=== PATIENT | female | born 1965 | race Caucasian/White ===

== ENCOUNTER → 2016-04-14 | Outpatient (CLI) | payer OTHER ==
[~2016-04-14] MED LIST: ALPRAZOLAM0.25 M2 PO; ANTIBIOTIC O500 U/GM TP; BACTRIM DS 8001 TA1 PO; CEPHALEXIN500 M1 PO; CITALOPRAM HYDR20 MG PO; GLYBURIDE5 MG PO; METFORMIN HCL500 MG PO; OXYCODONE HCL10 M1 PO; ROPINIROLE HY0.25 MG PO
--- NOTE | ~2016-04-14 | PR ---
[place], [place] PROGRESS NOTE NAME: PAULINE ESTRADA [facility] #: [id number] UNIT #: [id number] ROOM: DOCTOR: AUREA SilvermanLEIGH BIRTHDATE: [birth year] DOS: 04/14/2016 CHIEF COMPLAINT: Diabetic foot ulcer of the right foot and left foot. HISTORY OF PRESENT ILLNESS: The location is the metatarsal head of the right foot, first metatarsal head plantar aspect. It is a recurrent wound that she has had for several weeks now. She has been in the Wound Clinic for 3 weeks, has missed her appointment last week due to a in the family. She has uncontrolled diabetes with neuropathy and very thick callus formation. She also has a wound on the left great toe in the plantar aspect as well. She has a postop shoe that she uses for offloading at this time. We have tried to send her to [facility] for diabetic shoes in the past; however, apparently they would not order them as she continues to have recurrent open wounds at the time. So, she has no specific complaints. She does complain of a lot of drainage coming from the wounds and has been using Puracol. No fevers or chills are noted. PHYSICAL EXAMINATION: VITAL SIGNS: Her vital signs are stable. Blood pressure is 128/80, pulse is 68, respirations 18, temperature is 98.2. SKIN: The wound on the right foot is measuring 1.1 in length by 0.5 in width and 0.2 in depth. There is thick callus formation around it even with the callus. The callus has some areas of dried blood indicating a repetitive trauma to the area. The erythema that was present on the first time she came in is much improved and has essentially resolved. There is another wound on the left great toe plantar aspect that is measuring 0.5 x 0.6 x 0.2. This has a lot of callus formation as well with a lot of bleeding around it. Debridement was done today of both of these wounds. The areas were prepped with alcohol pad just the callus area was. A #15 blade was used to debride callus of both of the areas. A curette was also used for the base of the wound. There was minimal bleeding. This is a selective debridement only. The post-debridement measurements on the right foot was 1.2 x 0.6 x 0.15 in depth on the left foot. The post-debridement measurements are 0.9 x 0.6 x 0.1. There is noted also some erythema of the left foot and some mild edema, but it is not warmer or acutely tender. There is no purulence. ASSESSMENT AND PLAN: Chronic diabetic foot ulcer of the right foot. The wound does appear to be responding. I think if she had come more frequently so that the callus could be taken care of this would probably heal a lot faster. She did actually heal well last time she was here with the contact cast, which we will consider next week if the patient is agreeable. Since she does have a lot of drainage at this point, I would like to switch to Aquacel AG rather than Puracol for now. The left great toe wound has not improved a great deal yet. I think the issue is offloading. She does have some erythema and edema of the toe than I am concerned about. We did not order an x-ray of this foot, so I will go ahead and order an x-ray to see if there is any kind of bony destruction. We will also use Aquacel AG for this one as well. The patient is to follow up with us in one week. We may consider contact cast for offloading. A new postop shoe was provided for the patient for the right foot. She will need diabetic shoes, and we will further investigate trying to get these ordered for her through a different company since [facility] no longer provides this service. [place], [place] PROGRESS NOTE NAME: PAULINE ESTRADA UNIT #: [id number] ROOM: DOCTOR: LEIGH VILLAR M.D. BIRTHDATE: [birth year] Follow up in one week. LEIGH VILLAR MD CM:CAREN [id number] LEIGH VILLAR M.D. 04/15/16 0821 interface
== END | disposition home or self-care (01) ==
LOC: WOUNDCARE 00:46
DX: E11.621 Type 2 diabetes mellitus with foot ulcer (principal); L97.521 Non-pressure chronic ulcer of other part of left foot limited to breakdown of skin; L97.512 Non-pressure chronic ulcer of other part of right foot with fat layer exposed; E11.40 Type 2 diabetes mellitus with diabetic neuropathy, unspecified; L84 Corns and callosities

== ENCOUNTER → 2016-04-21 | Outpatient (CLI) | payer OTHER ==
--- NOTE | ~2016-04-21 | PR ---
[place], [place] PROGRESS NOTE NAME: PAULINE ESTRADA [facility] #: [id number] UNIT #: [id number] ROOM: DOCTOR: AUREA SilvermanLEIGH BIRTHDATE: [birth year] DOS: 04/21/2016 Wound Care Followup Note CHIEF COMPLAINT: Follow up of diabetic foot ulcers, bilateral feet. HISTORY OF PRESENT ILLNESS: Elements: The location is a right plantar aspect of the first metatarsal head. It is a recurrent wound that she has had for several weeks now. She has been in the Wound Clinic for 4 weeks now. The wound does continue slowly to get smaller; however, she does continue to come back with a large amount of very thick callus formation despite offloading with a postop shoe. Her left great toe has a wound as well on the plantar aspect that is getting slightly smaller. This continues to have very large amounts of callus as well. She has no specific complaints today. PHYSICAL EXAMINATION: VITAL SIGNS: Stable. Temperature is 97.5, pulse of 80, respirations 18, blood pressure is 122/74. The wound on the right foot is measuring 1 x 0.3 x 0.2. There is a large amount of thick callus present. This area was debrided; this is a selective debridement. The tissue removed was hyperkeratotic, nonviable callus only as well as some fibrin slough. Post-debridement measurements are as follows 1.1 x 0.5 x 0.2. There is a moderate amount of bleeding that was controlled with pressure. Instrument used was a #15 blade and a curette. The left toe wound is measuring 0.4 x 0.3 x 0.2. There is a thick amount of callus present as before with lots of dry skin around the medial aspect of the toe. This area was debrided. The tissue removed was nonviable hyperkeratotic callus only. There was a moderate amount of bleeding that was controlled with pressure. Post-debridement measurements are as follows: 0.6 x 0.5 x 0.2. The instrument utilized was a #15 blade. X-ray was done on her left great toe, which was normal last week. ASSESSMENT AND PLAN: Chronic diabetic foot ulcers. There is definitely a large amount of progress with the right foot. At this time, since it continues to improve, I will hold off on the contact cast for now and have her continue to use her postop shoe. Hopefully, we will get diabetic shoes ordered for her in the near future. The left great toe wound is stable, it is getting smaller little by little. We will continue with the current dressing and have her follow up in one week. [place], [place] PROGRESS NOTE NAME: PAULINE ESTRADA UNIT #: [id number] ROOM: DOCTOR: LEIGH VILLAR M.D. BIRTHDATE: [birth year] LEIGH VILLAR MD CM:CAREN [phone] [id number] LEIGH VILLAR M.D. 04/21/16 2158 interface
== END ==
LOC: WOUNDCARE 03:50
DX: E11.621 Type 2 diabetes mellitus with foot ulcer (principal); L97.521 Non-pressure chronic ulcer of other part of left foot limited to breakdown of skin; L97.511 Non-pressure chronic ulcer of other part of right foot limited to breakdown of skin; L84 Corns and callosities

== ENCOUNTER → 2016-06-10 | Outpatient (CLI) | payer OTHER ==
--- NOTE | ~2016-06-10 | PR ---
[place], [place] PROGRESS NOTE NAME: PAULINE ESTRADA [facility] #: [id number] UNIT #: [id number] ROOM: DOCTOR: AUREA SilvermanLEIGH BIRTHDATE: [birth year] DOS: 06/10/2016 SUBJECTIVE: The patient comes in accompanied by her . CHIEF COMPLAINT: Followup of diabetic foot ulcers. She has a foot ulcer of her right plantar foot metatarsal head as well as one on the left great toe. She has had it present for 3 months at least. She has been coming to the wound clinic; however, it had been present prior to that too as well before she came present for approximately 2 months before she came. Initially, the wound did respond fairly well in the past to contact cast; however, she had some issues with the cast rubbing on her left foot. She tends to forget that she has a cast on in place and tends to automatically rub her left foot with the cast so due to this fact the cast was discontinued and immediately the ulcer continued to deteriorate after that. She has had also problem with the ulcer of the left foot of the first great toe plantar aspect as well associated with very severe thick callus formation and some chronic erythema associated with this left toe. She was seen approximately in the clinic 10 days ago at which time it looked like there was worsening of both of her wounds. The right foot wound appeared much more ulcerated and inflamed as well as very friable and the left great toe appeared to be more discolored. She does have some chronic erythema, but the erythema seems to be much more pronounced. She was placed empirically on a quinolone. X-rays were ordered and those were negative. She had a normal CBC, normal Chem-7 and C-reactive protein was normal. However, her hemoglobin A1c was elevated at 9.8. She has had severely uncontrolled diabetes. At one point, her hemoglobin A1c was 14, so this for her is an improvement. She has been scheduled for an MRI, which is going to be done today, this afternoon, so we do not have the result. In any case, she comes in for a followup appointment I also did recommend for her to be seen and to try and get fitted for orthotic type offloading shoes at a local podiatry office, Dr. Carroll's office. She still has not gotten a chance to go there yet, so that has not been done as of yet. She comes in today saying her sugar was 300. She did reports eating a milkshake yesterday. She also has some reported intermittent cramps of the right leg, which she said is not unusual for her and she has had this before. PHYSICAL EXAMINATION: Otherwise is normal. VITAL SIGNS: Blood pressure is 140/80, pulse of 80, respirations 18, temperature is 98.4. SKIN: The wound on the right lower extremity at the distal end is measuring 2.6 x 0.2 x 0.1. This, however, is definitely all callus it is very friable and bloody with a lot of thick dried callus notable it is very friable. There is some minimal erythema. It is not acutely tender or acutely warm. The callus is measuring 0.4 x 0.3 x 0.1 and there is still fairly thick amount of callus, actual discoloration appears improved from last week. It is definitely not as erythematous as it had been. A selective debridement was done of both of these wounds. The tissue removed was nonviable hyperkeratotic callus only. The post-debridement measurements of the right plantar wound is 2.5 x 3 x 0.1. The post-debridement measurements of the left plantar great toe is 0.6 x 0.5 x 0.1. The tissue removed was just nonviable hyperkeratotic callus only. There was [place], [place] PROGRESS NOTE NAME: PAULINE ESTRADA UNIT #: [id number] ROOM: DOCTOR: AUREA SilvermanUPHAM BIRTHDATE: [birth year] minimal bleeding that was controlled with pressure. The patient tolerated the debridement well and then #15 blade was utilized. ASSESSMENT AND PLAN: Chronic diabetic foot ulcers, which are not improving, most likely secondary to not being offloaded properly. She is going to get an MRI today. If the MRI is negative, we will go ahead and place the contact cast on the right leg. However, we will wait until the MRI is read hopefully it will be negative. I would like to initially place the cast on the right leg if possible; we may have to do one on the left leg as well in the near future, but not at the same time obviously. In the meantime, she should also consider going to the local podiatry office for orthotic offloading shoe devices or she can go to [facility] as well for that, although it may take more time to get the devices and I think this sooner should get something more definitive would be better. She does have some cramping of her right calf, which is not unusual for her. I did explain that if it does not improve that she should get this evaluated. The patient will come back next week. LEIGH VILLAR MD CM:CAREN [phone] LEIGH VILLAR M.D. 06/11/16 1044 interface
== END | disposition home or self-care (01) ==
LOC: MRI 02:13
DX: E11.621 Type 2 diabetes mellitus with foot ulcer (principal); B96.89 Other specified bacterial agents as the cause of diseases classified elsewhere; L97.521 Non-pressure chronic ulcer of other part of left foot limited to breakdown of skin

== ENCOUNTER → 2016-08-05 | Outpatient (CLI) | payer OTHER | END | disposition home or self-care (01) | LOC: US 18:47 | DX: M79.89 Other specified soft tissue disorders (principal) ==

== ENCOUNTER → 2017-05-23 | Outpatient (CLI) | payer OTHER | END | disposition home or self-care (01) | LOC: MRI 05-19 11:29 | DX: M48.061 Spinal stenosis, lumbar region without neurogenic claudication (principal); M12.88 Other specific arthropathies, not elsewhere classified, other specified site; M51.26 Other intervertebral disc displacement, lumbar region; M54.16 Radiculopathy, lumbar region ==

== ENCOUNTER → 2017-06-21 | Outpatient (CLI) | payer OTHER | END | disposition home or self-care (01) | LOC: US 14:05 | DX: R10.31 Right lower quadrant pain (principal); R60.9 Edema, unspecified ==

== ENCOUNTER 2017-06-26 11:26 | Emergency (ER) | payer OTHER ==
[~2017-06-26] VITALS: Ht 165.1 cm; Wt 81.6 kg
== END 2017-06-26 13:57 | disposition home or self-care (01) ==
LOC: ED 11:26
DX: S82.891A Other fracture of right lower leg, initial encounter for closed fracture (principal); M54.5 Low back pain; E11.621 Type 2 diabetes mellitus with foot ulcer; W19.XXXA Unspecified fall, initial encounter; Y93.89 Activity, other specified; Y92.89 Other specified places as the place of occurrence of the external cause; Y99.8 Other external cause status

== ENCOUNTER → 2017-07-28 | Outpatient (CLI) | payer OTHER | END | disposition home or self-care (01) | LOC: CT 13:34 | DX: S92.141A Displaced dome fracture of right talus, initial encounter for closed fracture (principal); X58.XXXA Exposure to other specified factors, initial encounter; Y93.89 Activity, other specified; Y92.89 Other specified places as the place of occurrence of the external cause; Y99.8 Other external cause status ==

== ENCOUNTER → 2017-12-14 | Outpatient (CLI) | payer OTHER ==
[~2017-12-14] MED LIST changes: +ACIDOPHILUS PR0.5 MG PO; +ASPIRIN CHEWABL81 MG PO; +ASPIRIN EC650 MG PO; +B COMPLEX1 EACH PO; +BIOFREEZE118 ML T; +COLACE100 MG PO; +CYCLOBENZAPRINE10 MG PO; +CYMBALTA60 MG PO; +DOXEPIN HCL100 MG PO; +DULCOLAX10 M1 R; +IBU800 M1 PO; +KLONOPIN1 M1 PO; +LANTUS SOL100 UNIT/1 SQ; +LEVOTHYROXINE100 MC1 PO; +MIRTAZAPINE45 MG PO; +MOM30 M1 PO; +NEURONTIN600 MG PO; +PERCOCET 7.5-31 EACH PO; +PREDNISONE10 MG PO; +PROTONIX40 MG PO; +REQUIP2 MG PO; +VALIUM10 MG PO; +VANCOMYCIN1.5 GM/500 IV; +VISTARIL50 MG PO; +VITAMIN D-32000 UNIT PO; +VITAMIN D5000 UNIT PO; +ZOSYN 3.373.375 GM/5 IV
== END | disposition home or self-care (01) ==
LOC: US 14:22
DX: M79.604 Pain in right leg (principal); R60.0 Localized edema

== ENCOUNTER 2017-12-28 02:14 | Inpatient (IN) | payer OTHER ==
[2017-12-28] VITALS (9 sets, daily range): BP systolic 118–154; BP diastolic 58–98
[~2017-12-28] VITALS: Ht 162.5 cm; Wt 99.8 kg
--- NOTE | ~2017-12-28 | EKG ---
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
--- NOTE | ~2017-12-28 | PR ---
[place], [place] PROGRESS NOTE NAME: PAULINE ESTRADA [facility] #: [id number] UNIT #: [id number] ROOM: 403 DOCTOR: KITA GONZALEZ MD,EAMON BIRTHDATE: [birth year] DOS: 12/31/2017 SUBJECTIVE: The patient has been noted quite comfortable at this time without any symptoms of acute shortness of breath, coughing, sputum expectoration or any chest pain. The patient's oxygenation has been gradually improved. Denies symptoms of fever or chills at this time as well. Planned for possible home discharge today. OBJECTIVE: VITAL SIGNS: For the patient which has been recorded showed normal temperature, respiratory rate 18, heart rate 99, blood pressure 138/72. Pulse oxygen saturation of the patient at rest on room air was noted at 95%. HEENT: Chronic obesity. NECK: Supple. CARDIOVASCULAR: S1, S2 audible. LUNGS: Noted with free of any wheezing. No crackles at the present time. ABDOMEN: Soft, obese, nontender, bowel sounds present. EXTREMITIES: Without any acute edema. IMPRESSION: 1. Acute respiratory failure. That has been improved with exacerbation of chronic obstructive pulmonary disease, very likelihood at this time. 2. The patient with hyperglycemia due to corticosteroid and diabetes mellitus. PLAN OF TREATMENT: The patient could be discharged to the nursing facility and should be assessed for need of home oxygen supplementation if the hypoxia occurred with ambulation. Otherwise, the patient with tapering prednisone. Other medical management, plan of care. Usual treatment, other therapies. EAMON EAST MD CM:PNTRANS [id number] EAMON GONZALEZ MD 01/09/18 1006 interface
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
[~2017-12-28 02:14] MED LIST changes: -ACIDOPHILUS PR0.5 MG PO; -ASPIRIN CHEWABL81 MG PO; -ASPIRIN EC650 MG PO; -B COMPLEX1 EACH PO; -BIOFREEZE118 ML T; -COLACE100 MG PO; -CYCLOBENZAPRINE10 MG PO; -CYMBALTA60 MG PO; -DOXEPIN HCL100 MG PO; -DULCOLAX10 M1 R; -IBU800 M1 PO; -KLONOPIN1 M1 PO; -LANTUS SOL100 UNIT/1 SQ; -LEVOTHYROXINE100 MC1 PO; -MIRTAZAPINE45 MG PO; -MOM30 M1 PO; -NEURONTIN600 MG PO; -PERCOCET 7.5-31 EACH PO; -PREDNISONE10 MG PO; -PROTONIX40 MG PO; -REQUIP2 MG PO; -VALIUM10 MG PO; -VANCOMYCIN1.5 GM/500 IV; -VISTARIL50 MG PO; -VITAMIN D-32000 UNIT PO; -VITAMIN D5000 UNIT PO; -ZOSYN 3.373.375 GM/5 IV
[2017-12-28 02:35] LABS: BASO # 0.1 10*3/uL (0.0-0.1); BASO % 0.8 % (0.0-1.0); EOS # 0.2 10*3/uL (0.0-0.4); EOS % 1.5 % (1.0-4.0); HEMATOCRIT 36.5 % (37.0-47.0); HEMOGLOBIN 10.8 g/dl (12.0-16.0); LYMPH # 2.8 10*3/uL (1.3-4.4); LYMPH % 26.3 % (27.0-41.0); MEAN CELL VOLUME 77.8 fl (81.0-99.0); MEAN CORPUSCULAR HGB CONC 29.6 g/dl (33.0-37.0); MEAN PLATELET VOLUME 9.7 fl (9.6-12.3); MONO # 0.6 10*3/uL (0.1-1.0); MONO % 6.1 % (3.0-9.0); NEUT # 6.8 10*3/uL (2.3-7.9); NEUT % 64.8 % (47.0-73.0); PLATELET COUNT AUTOMATED 345 10*3/uL (130-400); RED BLOOD COUNT 4.69 10*6/uL (4.10-5.10); RED CELL DISTRI WIDTH 15.4 % (0-14.5); WHITE BLOOD COUNT 10.5 10*3/uL (4.8-10.8)
[2017-12-28 02:44] LABS: INTERNATIONAL NORM RATIO 0.9 (2.0-3.5)
[2017-12-28 02:54] LABS: ALBUMIN 3.2 gm/dl (3.1-4.5); ALKALINE PHOSPHATASE 167 U/L (45-117); BUN 12 mg/dl (7-24); CHLORIDE 95 mmol/L (98-107); CREATININE 0.84 mg/dL (0.55-1.02); LIPASE 102 U/L (73-393); POTASSIUM 4.3 mmol/L (3.5-5.1); SGOT/AST 23 IU/L (3-35); SGPT/ALT 22 U/L (12-78); SODIUM 135 mmol/L (136-145)
[2017-12-28 02:55] LABS: TROPONIN I < 0.015 ng/ml (<0.045)
[2017-12-28 05:17] LABS: CHOLESTEROL 260 mg/dL (<200); HDL CHOLESTEROL 33 mg/dl (40-60)
[2017-12-28 05:21] LABS: TRIGLYCERIDES 1135 mg/dl (<150)
[2017-12-28] MEDS ORDERED: BIOFREEZE118 ML T (05:22)
[2017-12-28] MEDS ORDERED: ASPIRIN CHEWABL81 MG PO (05:22)
[2017-12-28] MEDS ORDERED: COLACE100 MG PO (05:22)
[2017-12-28] MEDS ORDERED: VALIUM10 MG PO (05:23)
[2017-12-28] MEDS ORDERED: CYMBALTA60 MG PO (05:23)
[2017-12-28] MEDS ORDERED: CYCLOBENZAPRINE10 MG PO (05:23)
[2017-12-28] MEDS ORDERED: DOXEPIN HCL100 MG PO (05:23)
[2017-12-28] MEDS ORDERED: NEURONTIN600 MG PO (05:24)
[2017-12-28] MEDS ORDERED: ACIDOPHILUS PR0.5 MG PO (05:25)
[2017-12-28] MEDS ORDERED: LEVOTHYROXINE100 MC1 PO (05:25)
[2017-12-28] MEDS ORDERED: PROTONIX40 MG PO (05:30)
[2017-12-28] MEDS ORDERED: PERCOCET 7.5-31 EACH PO ×2 (05:30)
[2017-12-28] MEDS ORDERED: B COMPLEX1 EACH PO (05:31)
[2017-12-28] MEDS ORDERED: REQUIP2 MG PO (05:31)
[2017-12-28] MEDS ORDERED: VISTARIL50 MG PO (05:31)
[2017-12-28] MEDS ORDERED: VITAMIN D-32000 UNIT PO (05:32)
[2017-12-28 09:25] LABS: VITAMIN D, 25-HYDROXY 14.5 ng/mL (30-100)
[2017-12-28 09:26] LABS: FERRITIN 20.4 ng/mL (10.0-291.0)
[2017-12-28 09:35] LABS: BASO # 0.1 10*3/uL (0.0-0.1); BASO % 0.4 % (0.0-1.0); EOS % 0.1 % (1.0-4.0); HEMATOCRIT 33.6 % (37.0-47.0); LYMPH # 2.1 10*3/uL (1.3-4.4); LYMPH % 11.1 % (27.0-41.0); MEAN CELL VOLUME 77.8 fl (81.0-99.0); MEAN CORPUSCULAR HGB 23.1 pg (27.0-31.0); MEAN CORPUSCULAR HGB CONC 29.8 g/dl (33.0-37.0); MEAN PLATELET VOLUME 9.5 fl (9.6-12.3); MONO # 1.1 10*3/uL (0.1-1.0); MONO % 5.6 % (3.0-9.0); NEUT # 15.7 10*3/uL (2.3-7.9); NEUT % 82.5 % (47.0-73.0); PLATELET COUNT AUTOMATED 310 10*3/uL (130-400); RED BLOOD COUNT 4.32 10*6/uL (4.10-5.10); RED CELL DISTRI WIDTH 15.3 % (0-14.5); RETICULOCYTE % 2.16 % (0.50-2.50)
[2017-12-28 09:49] LABS: ALBUMIN 3.3 gm/dl (3.1-4.5); ALKALINE PHOSPHATASE 158 U/L (45-117); BUN 10 mg/dl (7-24); CREATININE 0.95 mg/dL (0.55-1.02); IRON 18 ug/dL (50-170); PHOSPHOROUS 3.4 mg/dL (2.5-4.9); SGOT/AST 8 IU/L (3-35); SGPT/ALT 19 U/L (12-78); TOTAL IRON BINDING CAPACITY 474 ug/dl (250-450); TOTAL PROTEIN 7.9 gm/dL (6.4-8.2)
[2017-12-28 10:24] LABS: CHLORIDE 96 mmol/L (98-107); POTASSIUM 4.5 mmol/L (3.5-5.1); SODIUM 134 mmol/L (136-145)
[2017-12-28 15:55] LABS: BILIRUBIN NEGATIVE (NEGATIVE); BLOOD NEGATIVE (NEGATIVE); CLARITY CLEAR (CLEAR); COLOR YELLOW (YELLOW); GLUCOSE 3+ (NEGATIVE); KETONE NEGATIVE (NEGATIVE); LEUKO ESTERASE NEGATIVE (NEGATIVE); NITRITE NEGATIVE (NEGATIVE); RBC 0-2 rbc/hpf (0-2); UROBILINOGEN 0.2 E.U./dl (0.2-1.0)
[2017-12-29] VITALS: BP 124/60
[2017-12-29 06:52] LABS: HEMATOCRIT 29.5 % (37.0-47.0); HEMOGLOBIN 8.7 g/dl (12.0-16.0); MEAN CELL VOLUME 76.4 fl (81.0-99.0); MEAN CORPUSCULAR HGB 22.5 pg (27.0-31.0); MEAN CORPUSCULAR HGB CONC 29.5 g/dl (33.0-37.0); MEAN PLATELET VOLUME 10.1 fl (9.6-12.3); PLATELET COUNT AUTOMATED 306 10*3/uL (130-400); RED BLOOD COUNT 3.86 10*6/uL (4.10-5.10); RED CELL DISTRI WIDTH 15.2 % (0-14.5)
[2017-12-29 06:56] LABS: ALBUMIN 2.8 gm/dl (3.1-4.5); ALKALINE PHOSPHATASE 142 U/L (45-117); BUN 14 mg/dl (7-24); CHLORIDE 103 mmol/L (98-107); POTASSIUM 4.1 mmol/L (3.5-5.1); SGOT/AST 7 IU/L (3-35); SGPT/ALT 14 U/L (12-78); SODIUM 141 mmol/L (136-145); TOTAL PROTEIN 7.3 gm/dL (6.4-8.2)
[2017-12-29 07:40] LABS: MICROCYTOSIS SLIGHT; PLATELET SUFFICIENCY NORMAL (NORMAL); POLYCHROMASIA SLIGHT; TOTAL CELLS COUNTED 100 #CELLS
[2017-12-29 08:00] VITALS: BP 121/71
[2017-12-29 12:00] VITALS: BP 133/67
[2017-12-29 16:00] VITALS: BP 122/63
[2017-12-29 20:00] VITALS: BP 124/67
[2017-12-30] VITALS: BP 123/66
[2017-12-30 07:15] LABS: BASO % 0.2 % (0.0-1.0); EOS % 0.1 % (1.0-4.0); HEMATOCRIT 29.8 % (37.0-47.0); HEMOGLOBIN 8.8 g/dl (12.0-16.0); LYMPH # 1.2 10*3/uL (1.3-4.4); LYMPH % 8.8 % (27.0-41.0); MEAN CELL VOLUME 76.8 fl (81.0-99.0); MEAN CORPUSCULAR HGB 22.7 pg (27.0-31.0); MEAN CORPUSCULAR HGB CONC 29.5 g/dl (33.0-37.0); MEAN PLATELET VOLUME 10.1 fl (9.6-12.3); MONO # 0.4 10*3/uL (0.1-1.0); MONO % 2.5 % (3.0-9.0); NEUT # 12.1 10*3/uL (2.3-7.9); NEUT % 87.2 % (47.0-73.0); PLATELET COUNT AUTOMATED 332 10*3/uL (130-400); RED BLOOD COUNT 3.88 10*6/uL (4.10-5.10); RED CELL DISTRI WIDTH 15.4 % (0-14.5); WHITE BLOOD COUNT 13.9 10*3/uL (4.8-10.8)
[2017-12-30 07:34] LABS: BUN 21 mg/dl (7-24); CHLORIDE 101 mmol/L (98-107); POTASSIUM 4.1 mmol/L (3.5-5.1); SODIUM 139 mmol/L (136-145)
[2017-12-30 07:59] LABS: ALKALINE PHOSPHATASE 135 U/L (45-117); SGOT/AST 7 IU/L (3-35); TOTAL PROTEIN 6.9 gm/dL (6.4-8.2)
[2017-12-30 08:00] VITALS: BP 118/60
[2017-12-30 08:20] LABS: CREATININE 0.77 mg/dL (0.55-1.02); PHOSPHOROUS 4.7 mg/dL (2.5-4.9); SGPT/ALT 15 U/L (12-78)
[2017-12-30 12:00] VITALS: BP 125/50
[2017-12-30 16:00] VITALS: BP 139/72
[2017-12-30 20:00] VITALS: BP 108/61
[2017-12-31] VITALS: BP 143/61
[2017-12-31 00:28] VITALS: BP 117/58
[2017-12-31 07:15] LABS: BASO # 0.1 10*3/uL (0.0-0.1); BASO % 0.7 % (0.0-1.0); EOS # 0.1 10*3/uL (0.0-0.4); EOS % 0.8 % (1.0-4.0); HEMATOCRIT 32.5 % (37.0-47.0); HEMOGLOBIN 9.6 g/dl (12.0-16.0); LYMPH # 2.9 10*3/uL (1.3-4.4); LYMPH % 27.3 % (27.0-41.0); MEAN CELL VOLUME 77.2 fl (81.0-99.0); MEAN CORPUSCULAR HGB 22.8 pg (27.0-31.0); MEAN CORPUSCULAR HGB CONC 29.5 g/dl (33.0-37.0); MEAN PLATELET VOLUME 9.7 fl (9.6-12.3); MONO # 0.6 10*3/uL (0.1-1.0); MONO % 5.8 % (3.0-9.0); NEUT # 6.8 10*3/uL (2.3-7.9); NEUT % 63.5 % (47.0-73.0); PLATELET COUNT AUTOMATED 332 10*3/uL (130-400); RED BLOOD COUNT 4.21 10*6/uL (4.10-5.10); RED CELL DISTRI WIDTH 15.7 % (0-14.5); WHITE BLOOD COUNT 10.8 10*3/uL (4.8-10.8)
[2017-12-31 07:35] LABS: BUN 20 mg/dl (7-24); CHLORIDE 101 mmol/L (98-107); POTASSIUM 3.4 mmol/L (3.5-5.1); SODIUM 140 mmol/L (136-145)
[2017-12-31 08:00] VITALS: BP 122/70; BP 138/72
[2017-12-31] MEDS ORDERED: PREDNISONE10 MG PO (11:44)
[2018-02-08] MEDS ORDERED: ASPIRIN EC650 MG PO (23:56)
[2018-02-08] MEDS ORDERED: LANTUS SOL100 UNIT/1 SQ (23:59)
[2018-02-09] MEDS ORDERED: KLONOPIN1 M1 PO
[2018-02-09] MEDS ORDERED: IBU800 M1 PO (21:03)
[2018-02-09] MEDS ORDERED: MOM30 M1 PO (21:04)
[2018-02-09] MEDS ORDERED: DULCOLAX10 M1 R (21:05)
[2018-02-09] MEDS ORDERED: MIRTAZAPINE45 MG PO (21:06)
[2018-02-09] MEDS ORDERED: B COMPLEX1 EACH PO (21:07)
[2018-02-09] MEDS ORDERED: VITAMIN D5000 UNIT PO (21:08)
[2018-02-14] MEDS ORDERED: PERCOCET 7.5-31 EACH PO ×3 (14:05→14:11)
[2018-02-14] MEDS ORDERED: KLONOPIN1 M1 PO (14:05)
[2018-02-14] MEDS ORDERED: VANCOMYCIN1.5 GM/500 IV ×2 (14:16→15:47)
[2018-02-14] MEDS ORDERED: ZOSYN 3.373.375 GM/5 IV ×2 (14:17→15:47)
== END 2017-12-31 12:45 | disposition other institution (70) | DRG 189 ==
LOC: ED 02:14 → EDHOLD 03:50 → 4E 03:50
PROVIDERS: Emergency Medicine; Family Medicine; Internal Medicine
DX: J96.01 Acute respiratory failure with hypoxia (principal); J45.901 Unspecified asthma with (acute) exacerbation; E44.0 Moderate protein-calorie malnutrition; F33.9 Major depressive disorder, recurrent, unspecified; E87.1 Hypo-osmolality and hyponatremia; J44.1 Chronic obstructive pulmonary disease with (acute) exacerbation; F41.1 Generalized anxiety disorder; E11.65 Type 2 diabetes mellitus with hyperglycemia; R00.0 Tachycardia, unspecified; D50.9 Iron deficiency anemia, unspecified; T38.0X5A Adverse effect of glucocorticoids and synthetic analogues, initial encounter; F43.10 Post-traumatic stress disorder, unspecified; E66.01 Morbid (severe) obesity due to excess calories; G25.81 Restless legs syndrome; E78.5 Hyperlipidemia, unspecified; M54.30 Sciatica, unspecified side; E11.42 Type 2 diabetes mellitus with diabetic polyneuropathy; E87.8 Other disorders of electrolyte and fluid balance, not elsewhere classified; R74.8 Abnormal levels of other serum enzymes; E03.9 Hypothyroidism, unspecified; K21.9 Gastro-esophageal reflux disease without esophagitis; E55.9 Vitamin D deficiency, unspecified; Z98.891 History of uterine scar from previous surgery; Z98.51 Tubal ligation status; Z87.81 Personal history of (healed) traumatic fracture; Z83.3 Family history of diabetes mellitus; Z79.82 Long term (current) use of aspirin; Z79.899 Other long term (current) drug therapy; Z87.891 Personal history of nicotine dependence; Z79.84 Long term (current) use of oral hypoglycemic drugs; Y92.89 Other specified places as the place of occurrence of the external cause; Z68.35 Body mass index [BMI] 35.0-35.9, adult

== ENCOUNTER → 2018-01-18 | Outpatient (CLI) | payer OTHER ==
[~2018-01-18] MED LIST changes: +ACIDOPHILUS PR0.5 MG PO; +ASPIRIN CHEWABL81 MG PO; +ASPIRIN EC650 MG PO; +B COMPLEX1 EACH PO; +BIOFREEZE118 ML T; +COLACE100 MG PO; +CYCLOBENZAPRINE10 MG PO; +CYMBALTA60 MG PO; +DOXEPIN HCL100 MG PO; +DULCOLAX10 M1 R; +IBU800 M1 PO; +KLONOPIN1 M1 PO; +LANTUS SOL100 UNIT/1 SQ; +LEVOTHYROXINE100 MC1 PO; +MIRTAZAPINE45 MG PO; +MOM30 M1 PO; +NEURONTIN600 MG PO; +PERCOCET 7.5-31 EACH PO; +PREDNISONE10 MG PO; +PROTONIX40 MG PO; +REQUIP2 MG PO; +VALIUM10 MG PO; +VANCOMYCIN1.5 GM/500 IV; +VISTARIL50 MG PO; +VITAMIN D-32000 UNIT PO; +VITAMIN D5000 UNIT PO; +ZOSYN 3.373.375 GM/5 IV
== END | disposition home or self-care (01) ==
LOC: US 16:30
DX: M79.604 Pain in right leg (principal); R60.0 Localized edema

== ENCOUNTER 2018-05-06 13:48 | Emergency (ER) | payer OTHER ==
[~2018-05-06] VITALS: Ht 170.1 cm; Wt 74.8 kg
[~2018-05-06 13:48] MED LIST changes: +Synthroid,Lev150 MCG PO
[2018-05-06 14:20] LABS: BASO # 0.1 10*3/uL (0.0-0.1); BASO % 1.1 % (0.0-1.0); EOS # 0.4 10*3/uL (0.0-0.4); EOS % 4.6 % (1.0-4.0); HEMATOCRIT 40.3 % (37.0-47.0); LYMPH # 1.7 10*3/uL (1.3-4.4); LYMPH % 19.9 % (27.0-41.0); MEAN CELL VOLUME 85.6 fl (81.0-99.0); MEAN CORPUSCULAR HGB 27.6 pg (27.0-31.0); MEAN CORPUSCULAR HGB CONC 32.3 g/dl (33.0-37.0); MEAN PLATELET VOLUME 8.9 fl (9.6-12.3); MONO # 0.7 10*3/uL (0.1-1.0); MONO % 8.5 % (3.0-9.0); NEUT # 5.5 10*3/uL (2.3-7.9); NEUT % 65.3 % (47.0-73.0); PLATELET COUNT AUTOMATED 402 10*3/uL (130-400); RED BLOOD COUNT 4.71 10*6/uL (4.10-5.10); RED CELL DISTRI WIDTH 13.4 % (0-14.5); WHITE BLOOD COUNT 8.4 10*3/uL (4.8-10.8)
[2018-05-06 14:35] LABS: ACT PARTIAL THROMBO TIME 21.9 SECONDS (20.8-31.5); INTERNATIONAL NORM RATIO 0.9 (2.0-3.5)
[2018-05-06 14:39] LABS: ALBUMIN 3.2 gm/dl (3.1-4.5); ALKALINE PHOSPHATASE 138 U/L (45-117); BUN 16 mg/dl (7-24); CHLORIDE 99 mmol/L (98-107); CREATININE 0.93 mg/dL (0.55-1.02); POTASSIUM 4.4 mmol/L (3.5-5.1); SGOT/AST 24 IU/L (3-35); SGPT/ALT 27 U/L (12-78); SODIUM 137 mmol/L (136-145); TOTAL PROTEIN 7.8 gm/dL (6.4-8.2)
[2018-05-26] MEDS ORDERED: CIPRO500 MG PO (10:46)
[2018-05-26] MEDS ORDERED: VALIUM10 MG PO (10:55)
[2018-05-26] MEDS ORDERED: SIMVASTATIN20 MG PO (10:56)
[2018-05-26] MEDS ORDERED: NOVOLOG FL100 UNIT/1 SQ (10:58)
[2018-07-10] MEDS ORDERED: APAP325 MG PO (16:04)
[2018-07-10] MEDS ORDERED: CLONIDINE HCL0.1 MG PO (16:06)
[2018-07-10] MEDS ORDERED: LOSARTAN POTASS25 M1 PO (16:10)
[2018-07-10] MEDS ORDERED: NOVOLOG FL100 UNIT/2 SC (16:14)
[2018-07-10] MEDS ORDERED: REQUIP2 MG PO (16:16)
[2018-07-10] MEDS ORDERED: ZOCOR40 MG PO (16:17)
[2018-07-10] MEDS ORDERED: VISTARIL50 MG PO (16:19)
[2018-07-15] MEDS ORDERED: PERCOCET 7.5 MG-325 PO (13:21)
[2018-07-15] MEDS ORDERED: XARELTO10 MG PO (13:21)
[2018-07-15] MEDS ORDERED: PERCOCET 7.5-31 EACH PO (13:23)
[2018-07-28] MEDS ORDERED: KEFLEX500 M1 PO (03:27)
[2018-10-04] MEDS ORDERED: DOXYCYCLINE100 M3 PO (12:10)
[2018-10-04] MEDS ORDERED: XARELTO10 MG PO (12:10)
[2018-10-04] MEDS ORDERED: TRAMADOL HCL50 MG PO (12:11)
== END 2018-05-06 15:57 ==
LOC: ED 13:48
PROVIDERS: Emergency Medicine
DX: L08.9 Local infection of the skin and subcutaneous tissue, unspecified (principal); E11.40 Type 2 diabetes mellitus with diabetic neuropathy, unspecified; Z79.899 Other long term (current) drug therapy; Z79.2 Long term (current) use of antibiotics; Z79.4 Long term (current) use of insulin; Z79.82 Long term (current) use of aspirin

== ENCOUNTER 2018-07-29 03:23 | Emergency (ER) | payer OTHER ==
[~2018-07-29] VITALS: Ht 167.6 cm; Wt 95.3 kg
[~2018-07-29 03:23] MED LIST changes: +APAP325 MG PO; +CIPRO500 MG PO; +CLONIDINE HCL0.1 MG PO; +KEFLEX500 M1 PO; +LOSARTAN POTASS25 M1 PO; +NOVOLOG FL100 UNIT/1 SQ; +NOVOLOG FL100 UNIT/2 SC; +PERCOCET 7.5 MG-325 PO; +SIMVASTATIN20 MG PO; +XARELTO10 MG PO; +ZOCOR40 MG PO
[2018-07-29] MEDS ORDERED: NOVOLOG10 ML SQ (03:29)
[2018-07-29] MEDS ORDERED: PERCOCET 7.5-31 EACH PO ×2 (03:30)
[2018-07-29] MEDS ORDERED: KENALOG 0.1%80 GM T (04:07)
[2018-10-04] MEDS ORDERED: DOXYCYCLINE100 M3 PO (12:10)
[2018-10-04] MEDS ORDERED: XARELTO10 MG PO (12:10)
[2018-10-04] MEDS ORDERED: TRAMADOL HCL50 MG PO (12:11)
== END 2018-07-29 04:17 | disposition home or self-care (01) ==
LOC: ED 03:23
DX: S00.86XA Insect bite (nonvenomous) of other part of head, initial encounter (principal); S50.862A Insect bite (nonvenomous) of left forearm, initial encounter; S50.861A Insect bite (nonvenomous) of right forearm, initial encounter; J45.909 Unspecified asthma, uncomplicated; K21.9 Gastro-esophageal reflux disease without esophagitis; E03.9 Hypothyroidism, unspecified; E66.01 Morbid (severe) obesity due to excess calories; E11.40 Type 2 diabetes mellitus with diabetic neuropathy, unspecified; M86.8X7 Other osteomyelitis, ankle and foot; I50.9 Heart failure, unspecified; Z79.899 Other long term (current) drug therapy; Z79.4 Long term (current) use of insulin; Z79.82 Long term (current) use of aspirin; W57.XXXA Bitten or stung by nonvenomous insect and other nonvenomous arthropods, initial encounter; Y93.89 Activity, other specified; Y92.128 Other place in nursing home as the place of occurrence of the external cause; Y99.8 Other external cause status

== ENCOUNTER → 2018-10-04 | Day surgery (SDC) | payer OTHER ==
[2018-09-29 14:23] VITALS: BP 145/82
[2018-09-29 15:22] LABS: BASO # 0.1 10*3/uL (0.0-0.1); BASO % 0.8 % (0.0-1.0); EOS # 0.3 10*3/uL (0.0-0.4); EOS % 2.9 % (1.0-4.0); HEMATOCRIT 41.9 % (37.0-47.0); HEMOGLOBIN 12.4 g/dl (12.0-16.0); LYMPH # 3.6 10*3/uL (1.3-4.4); LYMPH % 38.1 % (27.0-41.0); MEAN CELL VOLUME 83.1 fl (81.0-99.0); MEAN CORPUSCULAR HGB 24.6 pg (27.0-31.0); MEAN CORPUSCULAR HGB CONC 29.6 g/dl (33.0-37.0); MONO # 0.9 10*3/uL (0.1-1.0); MONO % 9.1 % (3.0-9.0); NEUT # 4.6 10*3/uL (2.3-7.9); NEUT % 48.8 % (47.0-73.0); PLATELET COUNT AUTOMATED 322 10*3/uL (130-400); RED BLOOD COUNT 5.04 10*6/uL (4.10-5.10); RED CELL DISTRI WIDTH 14.2 % (0-14.5); WHITE BLOOD COUNT 9.5 10*3/uL (4.8-10.8)
[2018-09-29 15:46] LABS: BUN 11 mg/dl (7-24); CHLORIDE 102 mmol/L (98-107); POTASSIUM 3.6 mmol/L (3.5-5.1); SODIUM 142 mmol/L (136-145)
[~2018-10-04] VITALS: Ht 170.1 cm; Wt 103.4 kg
[2018-10-04] VITALS (9 sets, daily range): BP systolic 92–155; BP diastolic 29–81
[~2018-10-04] MED LIST changes: +DOXYCYCLINE100 M3 PO; +KENALOG 0.1%80 GM T; +NOVOLOG10 ML SQ; +TRAMADOL HCL50 MG PO
--- NOTE | ~2018-10-04 | O ---
[place], [place] OPERATIVE NOTE NAME: PAULINE ESTRADA [facility] #: [id number] UNIT #: [id number] ROOM: DOCTOR: JESSICA MARTINEZELLEN BIRTHDATE: [birth year] DOS: 10/04/2018 SURGEON: Dr. Lopez ASSISTANTS: 1. Tristan Hopson, fellow. 2. Slava Rivera, PGY3 PREOPERATIVE DIAGNOSIS: 1. Painful antibiotic cement. 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 POSTOPERATIVE DIAGNOSIS: 1. Painful antibiotic cement. 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 PROCEDURES: 1. Excision of antibiotic cement. 2. Revision subtalar joint arthrodesis, right. 3. Insertion of proximal transfixation screw of the right IM nail. DESCRIPTION OF PROCEDURE: The patient was seen in preoperative holding area. Appropriate site marking was performed. She concurred with the preoperative imaging and concurred with surgery. At this time, she was brought to the OR and placed on well-padded OR table. Anesthesia was achieved. Prior to that, she had a block done on her right lower extremity. At this time, right foot and leg were prepped and draped in the usual sterile fashion and fluoroscopy was used to identify the anatomy. At this point in time, the antibiotic cement was identified. PROCEDURE #1: Excision of antibiotic cement. Incision was made approximately 2 cm anterior aspect of the foot. It was deepened in the same plane using sharp and blunt dissection, carried down to the soft tissues. At this time, antibiotic cement was identified. It was resected and was taken out completely. The area was flushed with copious amounts of sterile saline. Deep tissue was closed with 0 Vicryl and skin was closed with 2-0 nylon. PROCEDURE #2: Revision of subtalar joint. At this point in time, given structural support for subtalar joint to create a solid union in this area, stimulating bleeding at the subtalar joint level with intramedullary drilling was performed. These 2 large screws were placed in the inferior calcaneus to the distal tibia. PROCEDURE #3: Insertion of the proximal transfixation screw. At this point in time, with perfect circles under fluoroscopy, a 5.0 screw was inserted into the most proximal portion of the IM nail in the most proximal portion of the screw hole. All wounds were closed with 2-0 nylon. The wounds were dressed with Betadine-soaked Adaptic,4 x 4s, Benny in a sterile compressive fashion. A BK cast was applied. She tolerated the procedure and anesthesia well and left and the OR with vital signs stable and vascular status intact. [place], [place] OPERATIVE NOTE NAME: PAULINE ESTRADA UNIT #: [id number] ROOM: DOCTOR: ELLEN LOPEZ DPM BIRTHDATE: [birth year] ELLEN LOPEZ DPM CM:OPRECORD:OPERATIVE NOTE [id number] ELLEN LOPEZ DPM 10/05/18 1357 interface
--- NOTE | ~2018-10-04 | WRIGHTHP ---
[place], [place] PATIENT HISTORY AND PHYSICAL EXAM NAME: PAULINE ESTRADA [facility] #: [id number] UNIT #: [id number] ROOM: DOCTOR: ELLEN LOPEZ DPM BIRTHDATE: [birth year] DOS: 10/04/2018 LOWER EXTREMITY PHYSICAL EXAMINATION: VASCULAR: She has palpable pedal pulses 2/4 DP and PT on the right, minimal edema. NEUROLOGIC: She has a loss of protective sensation secondary to diabetic peripheral neuropathy. DERMATOLOGIC: She has a well-healed skin integrity. No open wounds. Skin integrity is nicely healed throughout her right lower extremity. MUSCULOSKELETAL: She has stable hindfoot and ankle. 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 ELLEN LOPEZ DPM CM:HISPHYS:PATIENT HISTORY AND PHYSICAL EXAMINATION [id number] ELLEN LOPEZ DPM 10/04/18 1249 interface
--- NOTE | ~2018-10-04 | WRIGHTHP ---
[place], [place] PATIENT HISTORY AND PHYSICAL EXAM NAME: PAULINE ESTRADA [facility] #: [id number] UNIT #: [id number] ROOM: DOCTOR: ELLEN LOPEZ DPM BIRTHDATE: [birth year] DOS: 10/04/2018 INDICATION NOTE The patient is seen for a complicated reconstructive hindfoot and ankle surgery on the right. At this time, she is set for surgery at [facility] 10/04/2018 for removal of block antibiotic cement in the right foot and revision of subtalar joint arthrodesis of her right foot with addition of insertion of screws. With this in mind, she is aware of pros, cons, risks and benefits including overcorrection, undercorrection, recurrence, numbness, infection, nonunion, delayed union, malunion, DVT, PE, limb loss, RSD, CRPS, need for more surgery, anything can happen, nothing unexpectedly should happen. With this in mind, she signed the consent. She agreed to site marking. She agreed with the perioperative management. She understands the pros, cons, risks and benefits. She understands she is at risk for limb loss potentially. ELLEN LOPEZ DPM CM:HISPHYS:PATIENT HISTORY AND PHYSICAL EXAMINATION [id number] ELLEN LOPEZ DPM 10/04/18 1039 interface
--- NOTE | ~2018-10-04 | EKG ---
[place], [place] ELECTROCARDIOGRAM REPORT NAME: PAULINE ESTRADA UNIT #: [id number] ROOM: DOCTOR: EPIPHANY DRAFT REPORT BIRTHDATE: [birth year] [facility] Test Date: 2018-09-29 Test Time: 15:20:58 Pat Name: PAULINE ESTRADA Department: Room: Gender: F Compound Specialist: : 1965 Requested By: ELLEN LOPEZ Order Number: [id number] Reading MD: Valeria Morales MD Measurements Intervals [place] Rate: 84 P: 48 [place]: 137 QRS: 20 QRSD: 79 T: 24 QT: 407 QTc: 482 Interpretive Statements Sinus rhythm Anteroseptal infarct, old Compared to ECG 03/15/2018 10:23:53 Myocardial infarct finding now present Electronically Signed On 10-01-2018 11:39:50 PDT by Valeria Morales MD CM:EKGRPT:ELECTROCARDIOGRAM REPORT [id number] ELLEN LPOEZ DPM EPIPHANY DRAFT REPORT ELLEN LOPEZ DPM
--- NOTE | 2018-10-04 09:48 | NUR ---
DR. ABRAMS ORDERED PT TO BE EXTUBATED. PT. SUCTIONED AND EXTUBATED BY RESP. PT TOLERATING WELL. PLACED ON O2 MASK THEN NRB.
== END | disposition home or self-care (01) ==
LOC: SDC 09-29 13:15
PROVIDERS: Podiatrist
DX: M79.5 Residual foreign body in soft tissue (principal); M96.0 Pseudarthrosis after fusion or arthrodesis; F41.9 Anxiety disorder, unspecified; F32.9 Major depressive disorder, single episode, unspecified; E03.9 Hypothyroidism, unspecified; E66.9 Obesity, unspecified; E78.5 Hyperlipidemia, unspecified; E10.40 Type 1 diabetes mellitus with diabetic neuropathy, unspecified; Z68.35 Body mass index [BMI] 35.0-35.9, adult; Z87.891 Personal history of nicotine dependence; Z98.890 Other specified postprocedural states; Z98.51 Tubal ligation status; Z79.899 Other long term (current) drug therapy; Z79.82 Long term (current) use of aspirin

== ENCOUNTER 2018-10-07 03:15 | Emergency (ER) | payer MEDICAID ==
[~2018-10-07] VITALS: Ht 170.1 cm; Wt 103.4 kg
--- NOTE | ~2018-10-07 | EKG ---
[place], [place] ELECTROCARDIOGRAM REPORT NAME: PAULINE ESTRADA UNIT #: [id number] ROOM: DOCTOR: EPIPHANY DRAFT REPORT BIRTHDATE: [birth year] [facility] Test Date: 2018-10-07 Test Time: 03:45:06 Pat Name: PAULINE ESTRADA Department: Room: Gender: F Rn Medical Surgical: : 1965 Requested By: SHARMILA PALACIO Order Number: [id number] Reading MD: Jm Chen Measurements Intervals [place] Rate: 104 P: 52 PA: 145 QRS: 30 QRSD: 76 T: 30 QT: 355 QTc: 467 Interpretive Statements Sinus tachycardia Probable left atrial enlargement Low voltage, precordial leads Probable anteroseptal infarct, old Compared to ECG 09/29/2018 15:20:58 Low QRS voltage now present Sinus rhythm no longer present Myocardial infarct finding still present Electronically Signed On 10-08-2018 9:48:39 PDT by Jm Chen CM:EKGRPT:ELECTROCARDIOGRAM REPORT [id number] SHARMILA PALACIO MD EPIPHANY DRAFT REPORT SHARMILA PALACIO MD
[2018-10-07 03:48] LABS: BASO # 0.1 10*3/uL (0.0-0.1); BASO % 0.5 % (0.0-1.0); EOS % 0.2 % (1.0-4.0); HEMOGLOBIN 11.4 g/dl (12.0-16.0); LYMPH # 0.7 10*3/uL (1.3-4.4); LYMPH % 5.4 % (27.0-41.0); MEAN CELL VOLUME 86.5 fl (81.0-99.0); MEAN CORPUSCULAR HGB 25.3 pg (27.0-31.0); MEAN CORPUSCULAR HGB CONC 29.2 g/dl (33.0-37.0); MEAN PLATELET VOLUME 10.1 fl (9.6-12.3); MONO # 0.7 10*3/uL (0.1-1.0); MONO % 5.4 % (3.0-9.0); NEUT # 11.1 10*3/uL (2.3-7.9); NEUT % 87.2 % (47.0-73.0); PLATELET COUNT AUTOMATED 255 10*3/uL (130-400); RED BLOOD COUNT 4.51 10*6/uL (4.10-5.10); RED CELL DISTRI WIDTH 14.7 % (0-14.5); WHITE BLOOD COUNT 12.7 10*3/uL (4.8-10.8)
[2018-10-07 04:01] LABS: ACT PARTIAL THROMBO TIME 29.3 SECONDS (20.0-32.1); INTERNATIONAL NORM RATIO 1.1 (2.0-3.5)
[2018-10-07 04:06] LABS: ALBUMIN 3.5 gm/dl (3.1-4.5); ALKALINE PHOSPHATASE 177 U/L (45-117); BUN 11 mg/dl (7-24); CHLORIDE 99 mmol/L (98-107); CREATININE 0.88 mg/dL (0.55-1.02); LIPASE 76 U/L (73-393); POTASSIUM 4.4 mmol/L (3.5-5.1); SGOT/AST 58 IU/L (3-35); SGPT/ALT 57 U/L (12-78); SODIUM 139 mmol/L (136-145); TOTAL PROTEIN 8.1 gm/dL (6.4-8.2); TROPONIN I 0.035 ng/ml (<0.045)
[2018-10-07 07:24] LABS: BILIRUBIN NEGATIVE (NEGATIVE); BLOOD TRACE-INTACT (NEGATIVE); CLARITY SL CLOUDY (CLEAR); COLOR YELLOW (YELLOW); GLUCOSE 3+ (NEGATIVE); KETONE 1+ (NEGATIVE); LEUKO ESTERASE NEGATIVE (NEGATIVE); NITRITE NEGATIVE (NEGATIVE); PH 5.5 (5.0-9.0); SPECIFIC GRAVITY 1.025 (1.005-1.030); UROBILINOGEN 0.2 E.U./dl (0.2-1.0)
[2018-10-07 07:43] LABS: BACTERIA 2+; WBC 21-30 wbc/hpf (0-5); YEAST 1+
== END 2018-10-07 09:18 | disposition short-term general hospital (02) ==
LOC: ED 03:15
PROVIDERS: Emergency Medicine Emergency Medical Services
DX: R56.9 Unspecified convulsions (principal); R41.82 Altered mental status, unspecified; J45.909 Unspecified asthma, uncomplicated; E11.9 Type 2 diabetes mellitus without complications; K21.9 Gastro-esophageal reflux disease without esophagitis; E03.9 Hypothyroidism, unspecified; E66.01 Morbid (severe) obesity due to excess calories; Z79.899 Other long term (current) drug therapy; Z79.4 Long term (current) use of insulin; Z79.82 Long term (current) use of aspirin; Z79.2 Long term (current) use of antibiotics

== ENCOUNTER → 2019-03-22 | Outpatient (CLI) | payer MEDICAID | END | disposition home or self-care (01) | LOC: MAMMO 09:20 | DX: Z12.31 Encounter for screening mammogram for malignant neoplasm of breast (principal); M51.26 Other intervertebral disc displacement, lumbar region; M47.816 Spondylosis without myelopathy or radiculopathy, lumbar region; M54.31 Sciatica, right side ==

== ENCOUNTER 2019-04-19 21:14 | Emergency (ER) | payer MEDICAID ==
[~2019-04-19] VITALS: Ht 170.1 cm; Wt 93.4 kg
[2019-04-19 22:32] LABS: BASO # 0.1 10*3/uL (0.0-0.1); BASO % 0.9 % (0.0-1.0); EOS # 0.1 10*3/uL (0.0-0.4); HEMATOCRIT 49.7 % (37.0-47.0); HEMOGLOBIN 14.9 g/dl (12.0-16.0); LYMPH # 2.9 10*3/uL (1.3-4.4); LYMPH % 25.5 % (27.0-41.0); MEAN CORPUSCULAR HGB 24.9 pg (27.0-31.0); MEAN PLATELET VOLUME 10.4 fl (9.6-12.3); MONO # 0.6 10*3/uL (0.1-1.0); MONO % 5.2 % (3.0-9.0); NEUT # 7.6 10*3/uL (2.3-7.9); NEUT % 67.1 % (47.0-73.0); PLATELET COUNT AUTOMATED 346 10*3/uL (130-400); RED BLOOD COUNT 5.99 10*6/uL (4.10-5.10); RED CELL DISTRI WIDTH 15.9 % (0-14.5); WHITE BLOOD COUNT 11.3 10*3/uL (4.8-10.8)
[2019-04-19 22:49] LABS: ALBUMIN 4.6 gm/dl (3.1-4.5); ALKALINE PHOSPHATASE 63 U/L (45-117); BUN 20 mg/dl (7-24); CHLORIDE 104 mmol/L (98-107); CREATININE 1.15 mg/dL (0.55-1.02); POTASSIUM 4.1 mmol/L (3.5-5.1); SGOT/AST 23 IU/L (3-35); SGPT/ALT 34 U/L (12-78); SODIUM 139 mmol/L (136-145); TOTAL PROTEIN 8.6 gm/dL (6.4-8.2)
[2019-04-19 22:51] LABS: TROPONIN I < 0.015 ng/ml (<0.045)
[2019-04-19 23:25] LABS: BILIRUBIN NEGATIVE (NEGATIVE); CLARITY CLEAR (CLEAR); COLOR YELLOW (YELLOW); GLUCOSE 2+ (NEGATIVE); KETONE TRACE (NEGATIVE)
[2019-04-19 23:26] LABS: BLOOD NEGATIVE (NEGATIVE); UROBILINOGEN 0.2 E.U./dl (0.2-1.0)
[2019-04-19 23:27] LABS: LEUKO ESTERASE NEGATIVE (NEGATIVE); NITRITE NEGATIVE (NEGATIVE)
[2019-04-19 23:33] LABS: RBC 0-2 rbc/hpf (0-2)
[2019-04-19 23:41] LABS: URINE AMPHETAMINES < 1000 (1000ng/ml); URINE BARBITURATES < 200 (200ng/ml); URINE BENZODIAZEPINES > 200 (200ng/ml); URINE CANNABINOIDS (THC) > 50 (50ng/ml); URINE COCAINE < 300 (300ng/ml); URINE METHADONE < 300 (300ng/ml); URINE OPIATES < 300 (300ng/ml)
[2019-04-19 23:51] LABS: URINE PHENCYCLIDINE < 25 (25ng/ml)
== END 2019-04-20 01:25 | disposition short-term general hospital (02) ==
LOC: ED 21:14
PROVIDERS: Emergency Medicine
DX: R11.10 Vomiting, unspecified (principal); R10.9 Unspecified abdominal pain; R04.0 Epistaxis; J45.909 Unspecified asthma, uncomplicated; K21.9 Gastro-esophageal reflux disease without esophagitis; E11.40 Type 2 diabetes mellitus with diabetic neuropathy, unspecified; E03.9 Hypothyroidism, unspecified; E66.01 Morbid (severe) obesity due to excess calories; M86.8X6 Other osteomyelitis, lower leg

== ENCOUNTER 2019-11-28 22:28 | Inpatient (IN) | payer OTHER ==
[~2019-11-28] VITALS: Ht 170.1 cm; Wt 99.8 kg
[~2019-11-28 22:28] MED LIST changes: +ACTOS15 M1 PO; +ASPIRIN81 M1 PO; +AUGMENTIN 875-875 MG PO; +Amaryl2 MG PO; +CORTISONE28 GM T; +CRESTOR10 M1 PO; +D3-501250 MCG PO; +DULCOLAX STOOL100 M1 PO; +FENOFIBRATE MI200 MG PO; +FEROSUL325 MG PO; +GLUCOPHAGE1000 MG PO; +JARDIANCE25 MG PO; +LACTOBACILLUS1 EACH PO; +LYRICA200 M1 PO; +MELATONIN5 M6 PO; +OMEGA-31000 M1 PO; +REQUIP3 M1 PO; +VICTOZA 2-0.6 MG/0.1 SC; +VITAMIN B COMP1 EACH PO; +VITAMIN C500 M8 PO
[2019-11-28 22:30] VITALS: BP 108/56
[2019-11-28 23:12] LABS: HEMATOCRIT 39.9 % (37.0-47.0); MEAN CELL VOLUME 88.7 fl (81.0-99.0); MEAN CORPUSCULAR HGB 29.1 pg (27.0-31.0); MEAN CORPUSCULAR HGB CONC 32.8 g/dl (33.0-37.0); MEAN PLATELET VOLUME 10.4 fl (9.6-12.3); PLATELET COUNT AUTOMATED 181 10*3/uL (130-400); RED CELL DISTRI WIDTH 13.2 % (0-14.5); WHITE BLOOD COUNT 16.9 10*3/uL (4.8-10.8)
[2019-11-28 23:28] LABS: ALBUMIN 3.2 gm/dl (3.1-4.5); ALKALINE PHOSPHATASE 65 U/L (45-117); BUN 13 mg/dl (7-24); CHLORIDE 105 mmol/L (98-107); CREATININE 0.95 mg/dL (0.55-1.02); POTASSIUM 3.6 mmol/L (3.5-5.1); SGOT/AST 16 IU/L (3-35); SGPT/ALT 31 U/L (12-78); SODIUM 136 mmol/L (136-145); TOTAL PROTEIN 7.3 gm/dL (6.4-8.2)
[2019-11-28 23:29] LABS: PLATELET SUFFICIENCY NORMAL (NORMAL); TOTAL CELLS COUNTED 100 #CELLS
--- NOTE | 2019-11-29 01:44 | NUR ---
NURSE TO NURSE REPORT TAKEN FROM TRACY LLAMAS RN.
[2019-11-29] MEDS ORDERED: PERCOCET 10-321 EACH PO (04:26)
[2019-11-29] MEDS ORDERED: VITAMIN D310 MC1 PO (04:34)
--- NOTE | 2019-11-29 06:15 | NUR ---
JOHAN PETERSON RN IN ED TO OBTAIN REPORT ON PT AND TRANSPORT TO FLOOR. JOHAN WAS ADVISED PT HAS TWO WOUNDS THAT NEEDED PHOTOGRAPHED. JOHAN RN STATES THAT SHE WILL TRANSPORT PT AND PHOTOGRAPH WOUNDS. WOUNDS DOCUMENTED
[2019-11-29 06:25] VITALS: BP 96/52
--- NOTE | 2019-11-29 06:25 | NUR ---
A 54, admitted to 5E, under the services of MEGAN Mario MD with a diagnosis of CELLULITIS. Chief complaint is PAIN\. Patient arrived via bed from ER. Monitor applied. Initial assessment completed. Vital signs taken and recorded. MEGAN MARIO MD notified of admission to the unit. Orders received. See assessment for past medical history, medications and allergies. Patient and/or family oriented to unit. [facility] visitation policy reviewed. Clothing/patient valuable form completed. JOHAN BERGERON
--- NOTE | 2019-11-29 07:16 | NUR ---
ATTEMPTED TO CALL DR. SMYTH 4 TIMES ON CELL. TRIED HOME PHONE TWICE. MICHAEL FROM [facility] NOTIFIED, STATED THAT SHE WILL CALL AND GET ORDERS. ALSO NOTIFIED OF MED REC COMPLETED AND NEED FOR WOUND ORDERS.
[2019-11-29 08:00] VITALS: BP 103/62
--- NOTE | 2019-11-29 08:46 | NUR ---
Discussed obs vs inpatient status with Dr. Webster. Order received for observation.
--- NOTE | 2019-11-29 08:57 | NUR ---
Spoke with freddie porter regarding wound care recommendations she states it is just cellulitis and she doesn't need podiatry or ointment since areas are not open at this time.
--- NOTE | 2019-11-29 09:00 | NUR ---
Csr in to talk to patient. Patient states lives at home with her son, her son's girlfriend, best friend Daniel, and children. There are 4 steps in the home. Physician: Dr. Damaso Briggs Pharmacy: [facility] Home health services: none Patient's level of ADLs: MINIMAL ASSIST Patient has working utilities: yes DME: w/c, O2 @ 2.5L nc prn, O2 supplier [facility] Follow-up physician's appointment after d/c: she prefers to make her own follow up appt after discharge Does patient want to access PORTAL?: no Discharge plan discussed with patient. She lives at home with family. She states she doesn't think her son wants her living with him. Asked what happened at [facility] as she was a LTC resident there. She went home on August 26 and is considering returning but not right now. She states she is independent in her ADLs and gets around in a wheelchair. Discussed short term rehab and home health care services and she declines. CM will continue to follow for any discharge planning needs. When medically stable she will be discharged to home. She states her son will provide transportation on discharge. TRACY LEE
[2019-11-29 09:50] VITALS: BP 122/60
[2019-11-29 12:00] VITALS: BP 114/78
--- NOTE | 2019-11-29 14:08 | NUR ---
PERCOCET GIVEN FOR C/O RT LEG PAIN. RATES 10/10 ON PAIN SCALE. WILL MONITOR.
[2019-11-29 16:00] VITALS: BP 103/87
--- NOTE | 2019-11-29 19:00 | NUR ---
REPORT RECEIVED FROM MICHAEL LEACH. PT ASLEEP AT THIS TIME. RESPIRATIONS EASY AND UNLABORED, CALL LIGHT IN REACH
--- NOTE | 2019-11-29 19:36 | NUR ---
24 HR chart check completed.
[2019-11-29 20:00] VITALS: BP 110/67
--- NOTE | 2019-11-29 22:00 | NUR ---
PT ASLEEP AT THIS TIME
[2019-11-30] VITALS: BP 139/47
--- NOTE | 2019-11-30 | NUR ---
INTO SEE PT. AROUSES EASILY. NO COMPLAINTS VOICED. CALL LIGHT IN REACH
--- NOTE | 2019-11-30 03:00 | NUR ---
PT SLEEPING. RESPS EASY AND UNLABORED. O2 INTACT
--- NOTE | 2019-11-30 05:55 | NUR ---
IN TO SEE PT. AWAKENS EASILY. PT C/O RLE FEELING/LOOKING WORSE. WILL NOTIFY PHYSICIAN
--- NOTE | 2019-11-30 06:15 | NUR ---
DR. JUDGE NOTIFIED OF PT COMPLAINT OF RIGHT FOOT "GETTING WORSE". ORDER FOR CONSULT TO [facility] RECEIVED
--- NOTE | 2019-11-30 06:20 | NUR ---
DR. OLIVIA ANSWERING SERVICE NOTIFIED OF CONSULT
[2019-11-30 08:00] VITALS: BP 94/40
--- NOTE | 2019-11-30 08:30 | NUR ---
CM in to see patient. No new needs or request at this time. Discussed short term rehab and home health care services and she declines at this time. CM will continue to follow for any discharge planning needs. When medically stable she will be discharged to home.
--- NOTE | 2019-11-30 08:47 | NUR ---
PT COMPLAIN OF PAIN 10/10 RIGHT LOWER EXTREMITY. PERCOCET GIVEN. WILL MONITOR FOR EFFECTIVENESS
[2019-11-30 09:41] LABS: HEMATOCRIT 39.7 % (37.0-47.0); MEAN CORPUSCULAR HGB 29.4 pg (27.0-31.0); MEAN CORPUSCULAR HGB CONC 31.7 g/dl (33.0-37.0); MEAN PLATELET VOLUME 11.5 fl (9.6-12.3); PLATELET COUNT AUTOMATED 206 10*3/uL (130-400); RED BLOOD COUNT 4.29 10*6/uL (4.10-5.10); RED CELL DISTRI WIDTH 13.7 % (0-14.5)
[2019-11-30 09:48] LABS: MEAN CELL VOLUME 92.5 fl (81.0-99.0)
[2019-11-30 09:50] VITALS: BP 122/60
[2019-11-30 10:24] LABS: PLATELET SUFFICIENCY NORMAL (NORMAL); POLYCHROMASIA SLIGHT; TOTAL CELLS COUNTED 100 #CELLS
[2019-11-30 10:26] LABS: BUN 22 mg/dl (7-24); CHLORIDE 97 mmol/L (98-107); CREATININE 1.12 mg/dL (0.55-1.02); POTASSIUM 3.9 mmol/L (3.5-5.1); SODIUM 134 mmol/L (136-145)
[2019-11-30 12:00] VITALS: BP 103/52
--- NOTE | 2019-11-30 12:25 | NUR ---
OFF FLOOR FOR MRI
[2019-11-30 16:00] VITALS: BP 102/43
--- NOTE | 2019-11-30 17:05 | NUR ---
IV LEFT AC, INFILTRATED. NEW IV PLACED RIGHT AC, WHILE VANC RUNNING, BEEPING OCCULSION. ATTMPTED TO FLUSH, WOULD NOT FLUSH. NEW IV ACCESS ATTEMPTED X2 BY THIS RN, UNSUCCESSFUL
--- NOTE | 2019-11-30 17:42 | NUR ---
NEW IV PLACED KWAKU Guthrie RN, #24 PLACED RIGHT RA
[2019-11-30 20:04] VITALS: BP 123/92
--- NOTE | 2019-11-30 20:30 | NUR ---
UPON ENTERING PATIENT'S ROOM PT. FOUND TO BE VERY DROWSY. AROUSED TO VERBAL/TACTILE STIMULI. PT'S PULSE OX 70'S; PLACED PATIENT ON 02 AT 3 LITERS & PULSE OX CAME UP TO 92-93%. INFORMED PATIENT THAT SHE NEEDED TO LEAVE THE OXYGEN ON. PT. STATES THAT SHE SOMETIMES WEARS IT AT HOME. CALL LIGHT WITHIN REACH. BED ALARM PUT ON BY THIS RN & IV POLE MOVED TO RIGHT SIDE WHERE IV IS DUE TO PATIENT HAVING HER TUBING STRETCHED TAUT. INFORMED PT. TO PUT CALL LIGHT ON WHEN NEEDED ASSISTANCE OUT OF BED. WILL CONTINUE TO MONITOR.
--- NOTE | 2019-11-30 22:00 | NUR ---
PT. DROWSY; HELD HER VALIUM, LYRICA & REMERON DUE TO PATIENT BEING DROWSY.
[2019-12-01] VITALS (10 sets, daily range): BP systolic 95–125; BP diastolic 37–98
--- NOTE | 2019-12-01 00:39 | NUR ---
ATTEMPTED TO CALL DR. SMYTH ON HER CELL PHONE & HER HOME PHONE # & UNABLE TO REACH HER ON EITHER PHONE.
--- NOTE | 2019-12-01 05:37 | NUR ---
BLOOD SUGAR 261.
[2019-12-01 06:14] LABS: HEMATOCRIT 36.3 % (37.0-47.0); MEAN CORPUSCULAR HGB 29.1 pg (27.0-31.0); MEAN PLATELET VOLUME 10.7 fl (9.6-12.3); PLATELET COUNT AUTOMATED 188 10*3/uL (130-400); RED BLOOD COUNT 3.99 10*6/uL (4.10-5.10); RED CELL DISTRI WIDTH 13.8 % (0-14.5); WHITE BLOOD COUNT 12.3 10*3/uL (4.8-10.8)
[2019-12-01 06:28] LABS: POTASSIUM 4.3 mmol/L (3.5-5.1)
[2019-12-01 06:30] LABS: CREATININE 1.93 mg/dL (0.55-1.02)
[2019-12-01 06:51] LABS: TOTAL CELLS COUNTED 100 #CELLS
[2019-12-01 06:52] LABS: PLATELET SUFFICIENCY NORMAL (NORMAL); POLYCHROMASIA SLIGHT; ROULEAUX SLIGHT
--- NOTE | 2019-12-01 06:55 | NUR ---
CALLED PHARMACY PERTAINING TO PATIENT'S HOME MEDICATIONS. PHARMACIST STATED THAT PT. HAS MEDS IN PHARMACY.
--- NOTE | 2019-12-01 07:05 | NUR ---
CALLED DR. SMYTH PERTAINING TO PATIENT BEING LETHARGIC, 02 SATS & BLOOD CULTURE RESULTS. NEW ORDER RECEIVED TO CONSULT ORTHO.
--- NOTE | 2019-12-01 08:00 | NUR ---
ALERT AND ORIENTED X3. DUE TO BEING NPO MEDS HELD PER ORDER. RT. BLE RED WITH SOME OPEN JAMIE ON TOES AND 2-3+ EDEMA. PLEASANT AND COOPERATIVE. NO C/O VOICED. WILL MONITOR.
--- NOTE | 2019-12-01 09:13 | NUR ---
DR. EAST NOTIFIED OF CONSULT. OBTAINED ORDER FOR ABG.
--- NOTE | 2019-12-01 09:45 | NUR ---
DR. CALABRESE-PODIATRY RESIDENT AND ALSO DR. KIMBROUGH IN TO SEE PATIENT RE: PLAN OF CARE, AND ALSO DR. OLIVIA. PER DR. OLIVIA PATIENT HAS AN ABSCESS REQUIRING SURGICAL INTERVENTION TODAY. THE PATIENT HAS BEEN SEEING DR. GENTILE FOR TREATMENT OF HER RIGHT ANKLE AND HAS PLACED HARDWARE IN THIS AREA PREVIOUSLY, SO SURGERY WILL BE PER PODIATRY RECCOMMENDATIONS.
[2019-12-01 10:10] LABS: ABG BASE EXCESS -5.8 mmol/L (-2.0-2.0); ARTERIAL BLOOD GAS PH 7.261 (7.35-7.45)
--- NOTE | 2019-12-01 10:19 | NUR ---
DR. EAST NOTIFIED OF ABG RESULTS. OBTAINED ORDER FOR BIPAP 12/01, ABG IN 2 HOURS.
--- NOTE | 2019-12-01 11:10 | NUR ---
PT. PLACED ON BIPAP. TOLERATING WELL.
--- NOTE | 2019-12-01 13:28 | NUR ---
PATIENT TO OR BY BED FOR I & D RT ANKLE W/APPLICATION OF WOUND VAC.
--- NOTE | 2019-12-01 13:30 | NUR ---
ABG ORDERED AFTER WAEARING BIPAP X 2 HRS. PT WAS OFF OF BIPAP AND ON A 3 L NC X 10 MINS PRIOR TO ATTEMPTING ABG. ABG ATTEMPTED X 3. UNSUCCESSFUL X 3. PT BEING PREPED FOR SURGERY. REQUESTED TO THE SURGERY RN TO ATTEMPT ABG IN THE OR. HE STATED THEY WOULD TRY. DR EAST CONTACTED AND AWARE.
--- NOTE | 2019-12-01 13:42 | NUR ---
PATIENT TO OR BY BED FOR I & D/WOUND VAC APPLICATION PROCEDURE.
--- NOTE | 2019-12-01 15:43 | NUR ---
PATIENT TO TRANSFER TO ICU AFTER SURGERY. OR STAFF NOTIFIED OF THIS, REPORT CALLED TO ICU NURSE.
--- NOTE | 2019-12-01 16:35 | NUR ---
PT RECIEVED IN ICCU 5 AT THIS TIME POST OP I+D OF WOUND WITH HARDWARE REMOVAL. PT IS A+O X3. BP 96/54, TEMP 96.2, SINUS TACHY AT 101. 95% ON 4L NC. LARGE DRESSING AND WOUND VAC ATTACHED TO SURGICAL SITE RIGHT ANKLE.
--- NOTE | 2019-12-01 17:10 | NUR ---
PT ADMITTED TO ICU POST OP. PT PLACED ON BIPAP AT THIS TIME. SYSTEM CHECKED AND FX'ING. PT TOLERATING WELL. RESPS REGULAR AND UNLABORED. ABG TO FOLLOW IN 2 HRS.
[2019-12-01 20:06] LABS: ARTERIAL BLOOD GAS PH 7.245 (7.35-7.45)
[2019-12-01 20:07] LABS: ABG BASE EXCESS -7.5 mmol/L (-2.0-2.0)
--- NOTE | 2019-12-01 20:15 | NUR ---
DR EAST NOTIFIED OF ABG RESULTS AND BLOOD PRESSURE 94/45 (64). NEW ORDER FOR NS @ 100CC/HR X15 HOURS.
--- NOTE | 2019-12-01 23:56 | NUR ---
PATIENT REFUSING BIPAP. 3LNC IN USE
[2019-12-02] VITALS: BP 105/45
--- NOTE | 2019-12-02 03:31 | NUR ---
MEDICATED WITH PERCOCET PER PRN ORDER FOR C/O RIGHT LEG PAIN.
[2019-12-02 04:00] VITALS: BP 109/51
--- NOTE | 2019-12-02 04:30 | NUR ---
PERCOCET EFFECTIVE FOR PAIN.
[2019-12-02 05:15] LABS: ALBUMIN 1.9 gm/dl (3.1-4.5); CREATININE 1.17 mg/dL (0.55-1.02); POTASSIUM 4.4 mmol/L (3.5-5.1); TOTAL PROTEIN 6.9 gm/dL (6.4-8.2)
[2019-12-02 06:08] LABS: HEMATOCRIT 31.6 % (37.0-47.0); MEAN CELL VOLUME 93.8 fl (81.0-99.0); MEAN CORPUSCULAR HGB 29.4 pg (27.0-31.0); MEAN CORPUSCULAR HGB CONC 31.3 g/dl (33.0-37.0); MEAN PLATELET VOLUME 11.4 fl (9.6-12.3); PLATELET COUNT AUTOMATED 182 10*3/uL (130-400); RED BLOOD COUNT 3.37 10*6/uL (4.10-5.10); RED CELL DISTRI WIDTH 14.1 % (0-14.5); WHITE BLOOD COUNT 14.1 10*3/uL (4.8-10.8)
[2019-12-02 07:17] LABS: TOTAL CELLS COUNTED 100 #CELLS
[2019-12-02 07:18] LABS: PLATELET SUFFICIENCY NORMAL (NORMAL); POLYCHROMASIA SLIGHT; ROULEAUX SLIGHT
[2019-12-02 08:00] VITALS: BP 107/53
[2019-12-02 08:16] LABS: ARTERIAL BLOOD GAS PH 7.212 (7.35-7.45)
[2019-12-02 08:18] LABS: ABG BASE EXCESS -5.7 mmol/L (-2.0-2.0)
[2019-12-02 12:00] VITALS: BP 114/53
[2019-12-02 17:15] VITALS: BP 114/60
--- NOTE | 2019-12-02 19:28 | NUR ---
Patient complains of pain from rt knee down to ankle. Percocet given. Will monitor and reassess.
[2019-12-02 20:00] VITALS: BP 126/63
--- NOTE | 2019-12-02 20:01 | NUR ---
PATIENT CURRENTLY OFF BIPAP , ON 3 L/M NC SPO2 96%.
--- NOTE | 2019-12-02 21:00 | NUR ---
Patient states the percocet was effective for pain.
--- NOTE | 2019-12-02 22:00 | NUR ---
PATIENT PLACED ON BIAP AT 18/10 305. HR 103 SPO2 98%.
--- NOTE | 2019-12-02 22:30 | NUR ---
Patients son called in to update password, son elisabeth stated he was patients poa. Son was updated on patients condition and post op report, will call back in the am to see if still in icu or downgraded to tele. Patient resting on bipap, no distress noted. In view of staff, call light in reach.
[2019-12-03] VITALS: BP 105/50
--- NOTE | 2019-12-03 01:33 | NUR ---
24 HR chart check completed.
[2019-12-03 04:01] VITALS: BP 104/52
--- NOTE | 2019-12-03 05:00 | NUR ---
Patient awoke after sleeping all night on bipap with no complaints. New labs showed a blood glucose of 60, patient asymptomatic, juice given. Patient states she has to urinate, explained multiple times that she has a catheter, which is blood tinged this am. Patient moving about in bed, able to wiggle toes to rt foot. Patient left with call light in reach.
[2019-12-03 05:46] LABS: ALBUMIN 1.9 gm/dl (3.1-4.5); ALKALINE PHOSPHATASE 80 U/L (45-117); BUN 25 mg/dl (7-24); CHLORIDE 107 mmol/L (98-107); POTASSIUM 3.7 mmol/L (3.5-5.1); SGOT/AST 16 IU/L (3-35); SGPT/ALT 21 U/L (12-78); SODIUM 140 mmol/L (136-145); TOTAL PROTEIN 6.8 gm/dL (6.4-8.2)
[2019-12-03 05:55] LABS: HEMATOCRIT 29.3 % (37.0-47.0); MEAN CELL VOLUME 95.8 fl (81.0-99.0); MEAN CORPUSCULAR HGB 29.4 pg (27.0-31.0); MEAN CORPUSCULAR HGB CONC 30.7 g/dl (33.0-37.0); MEAN PLATELET VOLUME 10.8 fl (9.6-12.3); NUCLEATED RED BLOOD CELL 0.2 % (0.0-0.0); PLATELET COUNT AUTOMATED 188 10*3/uL (130-400); RED BLOOD COUNT 3.06 10*6/uL (4.10-5.10); RED CELL DISTRI WIDTH 14.6 % (0-14.5); WHITE BLOOD COUNT 9.6 10*3/uL (4.8-10.8)
[2019-12-03 07:38] LABS: ROULEAUX MODERATE; TOTAL CELLS COUNTED 100 #CELLS
[2019-12-03 07:39] LABS: PLATELET SUFFICIENCY NORMAL (NORMAL)
--- NOTE | 2019-12-03 07:40 | NUR ---
DR SMYTH IN TO SEE PT AND I MADE HER AWARE OF PT'S WOUND CULTURE RESULTS OF MRSA.
--- NOTE | 2019-12-03 07:50 | NUR ---
PT MEDICATED WITH PERCOCET 2 TABS ORDERED FOR C/O RIGHT LEG SURGICAL SITE PAIN.
[2019-12-03 08:00] VITALS: BP 93/45
--- NOTE | 2019-12-03 09:02 | NUR ---
OT NOTE Occupational therapy order received and chart reviewed. Patient admitted s/p (12/01/2019) a right foot and ankle I&D, hardware removal, and wound vac placement, LISA, and hypercapnic respiratory failure. Following surgery on 12/01/2019, patient was transferred from the fifth floor to the ICCU-5. Due to patient's decline in medical status, will need new OT orders when medically appropriate. Thank you. Samanta Meng, OTR/L
--- NOTE | 2019-12-03 11:40 | NUR ---
PATIENT TAKEN OFF OF BI-PAP, PLACED ON 3 L/M.
[2019-12-03 12:00] VITALS: BP 115/53
[2019-12-03 12:34] LABS: ABG BASE EXCESS 2.9 mmol/L (-2.0-2.0); ARTERIAL BLOOD GAS PH 7.306 (7.35-7.45)
--- NOTE | 2019-12-03 12:42 | NUR ---
DR EAST NOTIFIED OF ABG RESULTS. BIPAP SETTINGS INCREASED TO 16/01.
--- NOTE | 2019-12-03 15:30 | NUR ---
PATIENT TAKEN OFF OF BI-PAP, PLACED ON 3 L/M.
[2019-12-03 15:50] LABS: ABG BASE EXCESS 4.2 mmol/L (-2.0-2.0); ARTERIAL BLOOD GAS PH 7.352 (7.35-7.45)
--- NOTE | 2019-12-03 15:54 | NUR ---
DR SALINAS RETURNED CALL AND MADE AWARE OF NEW CONSULT ORDER.
[2019-12-03 16:00] VITALS: BP 117/54
--- NOTE | 2019-12-03 16:22 | NUR ---
DR EAST NOTIFIED OF ABG RESULTS. NO NEW ORDERS AT THIS TIME. PT TO CONTINUE ON BIPAP CURRENT SETTINGS.
--- NOTE | 2019-12-03 17:19 | NUR ---
PT MEDICATED WITH PERCOCET 2 TABS FOR C/O SURGICAL SITE RIGHT FOOT PAIN.
--- NOTE | 2019-12-03 18:19 | NUR ---
PT STATED PERCOCET WAS EFFECTIVE IN EASING HER SURGICAL SITE PAIN.
[2019-12-03 20:00] VITALS: BP 107/45
--- NOTE | 2019-12-03 23:08 | NUR ---
ASSESSMENT COMPLETE. PT DOZING, WEARING BIPAP, AWAKENS EASILY AND CONVERSES. REMINDED OF NPO AFTER MIDNIGHT.
[2019-12-04] VITALS (10 sets, daily range): BP systolic 110–142; BP diastolic 43–82
--- NOTE | 2019-12-04 03:15 | NUR ---
PT CONVERSIVE DURING COMPLETE BATH/HIBICLENS/BED LINEN CHANGE. SHE DOES ASSIST WITH TURNING AND PULLING UP IN BED.
[2019-12-04 06:06] LABS: HEMATOCRIT 33.1 % (37.0-47.0); MEAN CELL VOLUME 94.8 fl (81.0-99.0); MEAN CORPUSCULAR HGB 29.2 pg (27.0-31.0); MEAN CORPUSCULAR HGB CONC 30.8 g/dl (33.0-37.0); MEAN PLATELET VOLUME 10.5 fl (9.6-12.3); PLATELET COUNT AUTOMATED 237 10*3/uL (130-400); RED BLOOD COUNT 3.49 10*6/uL (4.10-5.10); RED CELL DISTRI WIDTH 14.7 % (0-14.5); WHITE BLOOD COUNT 11.3 10*3/uL (4.8-10.8)
[2019-12-04 06:14] LABS: ALBUMIN 1.9 gm/dl (3.1-4.5); ALKALINE PHOSPHATASE 89 U/L (45-117); CHLORIDE 107 mmol/L (98-107); CREATININE 0.49 mg/dL (0.55-1.02); POTASSIUM 3.3 mmol/L (3.5-5.1); SGOT/AST 17 IU/L (3-35); SGPT/ALT 20 U/L (12-78); SODIUM 142 mmol/L (136-145); TOTAL PROTEIN 6.9 gm/dL (6.4-8.2)
[2019-12-04 06:15] LABS: BUN 13 mg/dl (7-24)
--- NOTE | 2019-12-04 06:17 | NUR ---
DESPITE HOLDING LANTUS LAST NIGHT, PT BS 39. GIVEN AMP OF D50. PT AWAKE AND DRY AT THIS TIME.
--- NOTE | 2019-12-04 06:25 | NUR ---
PT JOKING. CONTINUES TO BE AWAKE, ALERT, AND DRY. ASSISTED TO POSITION OF COMFORT.
[2019-12-04 07:00] LABS: BASOPHILS 1 % (0-1); PLATELET SUFFICIENCY NORMAL (NORMAL); ROULEAUX MODERATE; TOTAL CELLS COUNTED 100 #CELLS
--- NOTE | 2019-12-04 07:10 | NUR ---
PHYSICAL THERAPY Physical therapy order received and chart reviewed. Patient admitted s/p (12/01/2019) a right foot and ankle I&D, hardware removal, and wound vac placement, LISA, and hypercapnic respiratory failure. Following surgery on 12/01/2019, patient was transferred from the fifth floor to the ICCU-5. Due to patient's decline in medical status, will need new PT orders when medically Trice Villa PT
--- NOTE | 2019-12-04 07:30 | NUR ---
PATIENT BLOOD GLUCOSE CHECKED ONE HOUR AFTER DEXTROSE ADMINISTRATION. BG RESULT OF 74 AT THIS TIME. WILL CONTINUE TO MONITOR. PATIENT IS ASYMPTOMATIC.
--- NOTE | 2019-12-04 07:37 | NUR ---
PT PLACED ON BIPAP. PT TOLERATING WELL AT THIS TIME.
--- NOTE | 2019-12-04 09:00 | NUR ---
PATIENT TAKEN OFF THE FLOOR TO SURGERY FOR KENDRICK.
--- NOTE | 2019-12-04 11:30 | NUR ---
PATIENT BACK FROM SURGERY. KENDRICK NEGATIVE. PATIENT TOLERATED WELL. VITALS STABLE.
--- NOTE | 2019-12-04 11:54 | NUR ---
CM in to see patient. Discussed discharge planning. Informed she will need the wound vac and IV antibiotics on discharge. Discussed short term rehab and she is agreeable. She states she would like to go back to [facility] as she had been there previously and was told she can return at any time as she left on good terms. life care planner notified.
--- NOTE | 2019-12-04 12:30 | NUR ---
PODIATRY IN TO SEE PT AND EVALUATE WOUND VAC AT THIS TIME. NO FURTHER ORDERS GIVEN.
--- NOTE | 2019-12-04 15:05 | NUR ---
Referral faxed to [facility], new PT/OT orders put in for evals. Requires precert.
--- NOTE | 2019-12-04 15:32 | NUR ---
NAVARRETE REMOVED BY MARKIE LEACH. PATIENT TOLERATED WELL.
--- NOTE | 2019-12-04 15:50 | NUR ---
[facility] REPORT RECIEVED. ASSESSMENT COMPLETED. PATIENT RESTING QUIETLY IN BED. REPOSITIONED FOR COMFORT. WOUND VAC INTACT AT 200MMHG CONTINUOUS LOW INTENSITY. NO COMPLAINTS OF PAIN. NO OTHER VOICED COMPLAINTS. ORIENTED TO ROOM. MONITOR ATTACHED AND WORKING PROPERLY. LUNGS DIMINISHED. VSS. PPP. HRR. BS X 4. CALL LIGHT WITHIN REACH. WILL CONTINUE TO MONITOR.
--- NOTE | 2019-12-04 15:54 | NUR ---
PATIENT TAKEN OUT TO 5E AT THIS TIME VIA BED. REPORT GIVEN TO GRECIA LEACH. PATIENT HAS NO COMPLAINTS AT THIS TIME. CALL LIGHT WITHIN REACH.
--- NOTE | 2019-12-04 18:20 | NUR ---
PERCOCET GIVEN PER PATIENT REQUEST FOR COMPLAINTS OF BILATERAL FEET/HAND AND BACK PAIN RATED 9/10. WILL ASSESS EFFECTIVENESS.
--- NOTE | 2019-12-04 20:57 | NUR ---
PT REPOSITIONED AND CLEANED UP PT USED BEDPAN AND SPILLED ON BED SOME. NEW BEDDING PLACED. PT TOLERATED. DENIES ANY PAIN AT THIS TIME. CALL LIGHT IN REACH. SEE SHIFT ASSESSMENT.
--- NOTE | 2019-12-04 21:25 | NUR ---
PT RESTING IN BED. BSG-117, SEE EMAR. SKIN PALE W/D. PT MEDICATED WITH ROUTINE REMERON FOR INSOMNIA ALSO REQUESTING VALIUM FOR ANXIETYH. CALL LIGHT IN REACH. OXYGEN IN USE.
--- NOTE | 2019-12-04 22:15 | NUR ---
PT RESTING IN BED ON RIGHT SIDE WITH EYES CLOSED. RESP-EASY AND REGULAR. MEDICATION SEEMS TO BE EFFECTIVE. CALL LIGHT IN REACH.
--- NOTE | 2019-12-04 22:57 | NUR ---
PT MEDICATED WITH FLEXERIL FOR MUSCLE SPASMS. RESTLESS IN BED. CALL LIGHT IN REACH.
--- NOTE | 2019-12-04 23:14 | NUR ---
PT RESTLESS IN BED. C/O RIGHT LEG PAIN REQUESTING SOMETHING FOR PAIN. CALLED DR. JUDGE AWARE PT NOT DUE FOR PERCOCET UNTIL 2AM AND WHAT I HAVE GIVEN HER, SEE EMAR. ORDER TAKEN AND REVIEWED FOR TORADOL.
--- NOTE | 2019-12-04 23:40 | NUR ---
MEDICATED WITH TORADOL IV PER PRN ORDER, SEE EMAR. FOR C/O RIGHT LEG PAIN, RATES PAIN 10 ON PAIN SCALE. PT IS VERY RESTLESS IN BED. FIGETY AND MOANING WITH PAIN. CALL LIGHT IN REACH. OXYGEN IN USE.
[2019-12-05] VITALS: BP 141/62
--- NOTE | 2019-12-05 00:47 | NUR ---
PT WOUND VAC WAS BEEPING, CHECKED ON PT AND FROM PT BEING SO RESTLESS IN BED AND USING LEFT LEG TO KEEP RUBBING ON THE RIGHT LEG AND CONSTANTLY MOVING, CAUSED THE KAYCEE WRAP ON RIGHT LEG TO COME OFF. TRIED TO REPOSITION TUBING AND CHECK TUBING BUT NILDA KEPT BEEPING WITH OCCLUSION. CALLED PODIATRY AND DR. STEEN ANSWERED MADE AWARE SHE STATES SHE WILL DRIVE IN FROM [employer] AND REDUE WOUND VAC BUT IT WILL BE 45 MINUTES. REAPPLIED KAYCEE WRAP TO LEG.
--- NOTE | 2019-12-05 01:00 | NUR ---
CALLED IN REGARDS TO WOUND VAC NOT WORKING EFFECTIVELY. DOCTOR STATED IT WAS OK FOR NURSING TO CHANGE DRESSING AND REPLACE WITH NEW WOUND VAC MATERIAL. INFORMED DOCTOR THAT WE WOULD SAVE SOFT WRAP FROM ORIGINAL CAST TO REUSE ON TOP BANDAGE D/T NOT HAVING ON FLOOR BUT NEW GAUZE AND KERLEX WOULD BE USED. DOCTOR STATED THAT WAS FINE WELL. STATED SHE WANTED TO BE CALLED AFTERWARDS FOR AN UPDATE. STATED THAT SHE MIGHT COME IN EARLY TO MAYBE RE-DRESS OUTTER DRESSINGS.
--- NOTE | 2019-12-05 01:06 | NUR ---
PT FIGETY AND RESTLESS IN BED C/O RIGHT LEG PAIN. MEDICATED WITH PERCOCET PO PER PRN ORDER, SEE EMAR. CALL LIGHT IN REACH. RATES PAIN 10 ON PAIN SCALE 0-10.
--- NOTE | 2019-12-05 01:36 | NUR ---
WOUND VAC TO PATIENT RIGHT LEG AND DRESSINGS REMOVED. PT WAS VERY RESTLESS AND FIGETY. WAS ABLE TO REDRESS AND APPLY WOUND VAC DRESSING AND BLACK FOAM. WHEN WE REMOVED OLD BLACK FOAM FROM RIGHT FOOT ON OUTER ASPECT THE FOAM WAS OVER SOME OF THE SKIN BY THE OPEN PART OF WOUND AND WAS DARKENED ON OUTER PART OF WOUND. WAS ABLE TO REAPPLY WITH NO PROBLEM. PT STILL RESTLESS IN BED. SKIN PALE W/D. CALL LIGHT IN REACH. WILL CON'T TO MONITOR.
--- NOTE | 2019-12-05 01:37 | NUR ---
CALLED DR. JUDGE MADE AWARE OF PT RESTLESSNESS AND PAIN TO RIGHT LEG. MADE AWARFE FROM THIS PT MOVING ALOT AND CAUSED A ERROR IN WOUND VAC. REQUESTING SOMETHING ELSE FOR PAIN. DR. JUDGE ORDERED ONE TIME DOSE OF ATIVAN IV.
--- NOTE | 2019-12-05 01:46 | NUR ---
PT AWAKE RESTLESS STILL IN BED. MEDICATED WITH ATIVAN IV PER ORDER. PT TOLERATED. SKIN PALE W/D. MEDICATION EFFECTIVE AFTER FEW MINUTES OF ADMINISTERING. CALL LIGHT IN REACH. BIPAP REAPPLIED AND PULSE OX ON TO MONITOR. CALL LIGHT IN REACH.
--- NOTE | 2019-12-05 02:22 | NUR ---
PT SLEEPING IN BED WITH BIPAP IN USE. CHECKED A RANDOM BSG-47 REPEAT BSG-49. SKIN PALE W/D. CALLED DR. JUDGE MADE AWARE SLIDING SCALE ORDERED ALSO STAT REFLUX. HE ORDERED D50 NOW.
--- NOTE | 2019-12-05 02:30 | NUR ---
ADMINISTERED D50 LAB WAS ON THE FLOOR TO DRAW REFLUX ALSO. PT DROWSY AND BIPAP IN USE. WILL CON'T TO MONITOR. CALL LIGHT IN REACH.
--- NOTE | 2019-12-05 02:45 | NUR ---
PT SLEEPING IN BED WITH BIPAP IN USE. MEDICATIONS SEEMS TO BE EFFECTIVE. CALL LIGHT IN REACH.
--- NOTE | 2019-12-05 02:59 | NUR ---
SKIN PALE W/D. BSG-127. DROWSY BACK TO SLEEP. BIPAP IN USE. CALL LIGHT IN REACH.
--- NOTE | 2019-12-05 04:50 | NUR ---
SLEEPING IN BED. RESP-EASY AND REGULAR. BIPAP IN USE. AROUSES BUT VERY DROWSY. BSG-101, SKIN PALE W/D. CALL LIGHT IN REACH.
--- NOTE | 2019-12-05 06:16 | NUR ---
PT SKIN PALE W/D, BSG-82. C/O RIGHT LEG PAIN, RATES PAIN 10 ON PAIN SCALE 0-10. MEDICATED WITH TORADOL IV PER PRN ORDER, SEE EMAR. OXYGEN IN USE. CALL LIGHT IN REACH.
[2019-12-05 06:40] LABS: BUN 8 mg/dl (7-24); CREATININE 0.48 mg/dL (0.55-1.02)
[2019-12-05] MEDS ORDERED: VANCO 1.51.5 GM/250 IV (07:36)
[2019-12-05] MEDS ORDERED: RIFADIN300 MG PO (07:36)
--- NOTE | 2019-12-05 08:36 | NUR ---
PLACED PT ON BIPAP, HR 88, SPO2 96%,
--- NOTE | 2019-12-05 09:13 | NUR ---
PHYSICAL THERAPY PT evaluation attempted, pt unavailable at this time, placed on BIPAP by respriatory 02 levels dropping with use of IV pain medication. Spoke with nurse Tia, pt restless throughout night, with issues with wound vac. Per nsg better to attempt at a later time. Will try again late AM or early afternoon. Thank you. Clyde Mark SPT Trice Villa PT
--- NOTE | 2019-12-05 09:27 | NUR ---
Waiting on corporate review at [facility], they are unsure if they are able to accept this patient as she had called in numerous reports to the state the last time she was at their facility. Faxed face sheet to [facility] and all three of their facilities are out of network. checking other facilities for in network benefits.
[2019-12-05 12:00] VITALS: BP 137/68
--- NOTE | 2019-12-05 12:11 | NUR ---
Patient still under review at [facility]. Contacted the [facility] in [place] and faxed referral, they will be checking insurance and reviewing. Will follow
--- NOTE | 2019-12-05 12:58 | NUR ---
CM in to see patient. Discussed the possibility of [facility] not accepting patient and she doesn't understand why. She states she loves those people and they told her she could come home at any time. Discussed [facility] in [place] if [facility]'t [facility] and she is agreeable. demand planner notified. She states her home address is [address] [place] [address].
--- NOTE | 2019-12-05 13:30 | NUR ---
Occupational Therapy evaluation completed on four with full evaluation to follow. Recommend occupational therapy per plan of care and SNF upon discharge. Thank you for this referral. Samanta Meng OTR/L
--- NOTE | 2019-12-05 14:20 | NUR ---
Son Chin called in a stated he was her son and [facility] and can be reached at [phone]. We discussed discharge plan and I explained to him that she is not going to be able to go back to [facility]. I explained all of the other local facilities are [facility] of [facility] for her insurance. I was able to fax a referral to the [facility] in [place], they are in network. [facility] is agreeable to this facility.
--- NOTE | 2019-12-05 14:41 | NUR ---
PHYSICAL THERAPY Physical Therapy evaluation completed on 4th floor with full evaluation to follow. Recommend physical therapy per plan of care and SNF upon discharge. Thank you for this referral. Clyde Mark SPT Trice Villa PT
[2019-12-05 16:00] VITALS: BP 132/70
[2019-12-05 18:08] LABS: ACID FAST SPEC PROCESSING Concentration (.); ACID FAST SPEC PROCESSING Direct Inoculation (.)
[2019-12-05 20:00] VITALS: BP 133/61
--- NOTE | 2019-12-05 23:26 | NUR ---
PERCOCET GIVEN PER PATIENT REQUEST FOR COMPLAINTS OF PAIN "ALL OVER" RATED 10/10. WILL ASSESS EFFECTIVENESS.
[2019-12-06] VITALS: BP 152/62
--- NOTE | 2019-12-06 00:20 | NUR ---
PERCOCET EFFECTIVE PER PATIENT. WILL CONTINUE TO MONITOR.
--- NOTE | 2019-12-06 01:55 | NUR ---
24 HR chart check completed.
--- NOTE | 2019-12-06 07:30 | NUR ---
Discussed discharge planning with Dr. Webster. Informed patient has PICC line, prescriptions for the IV antibiotics were written and on chart by Dr. Boateng, and PCR is negative. Dr. Webster states to start precert. If precert is obtained today patient will be discharged. load planner following.
--- NOTE | 2019-12-06 07:36 | NUR ---
Patient updated clinicals and Covid 19 results (Negative) faxed to [place]. Asked to start precert, waiting on auth
--- NOTE | 2019-12-06 07:50 | NUR ---
PHYSICAL THERAPY Patient seen this am 1;1 for therapy visit and was resting supine in bed upon therapist arrival. Patient identified by name / and presented with continuos O2-3L via NC. OT special education assistant was also present this morning for observation only as patient reports 10/10 R LE pain. Patient is NWB on R LE, presenting with R foot wound vac and transfers supine to sit EOB with MIN A. Patient tolerated several minutes static EOB sit to collect herself, then performed several sit to stand transfers with use of wh walker standing support, MIN A. Patient demonstrated slow initial rise and needed v/c for proper hand placement, tolerating approx 2 minutes static stand. Patient educated on safe SPT and was able to complete SPT to BSC, use of wh walker, MIN A, demonstrating 95% compliance with NWB status R LE, with only slight difficulty during pivot phase of transfer as her heel touched floor. Patient reported episode of dizziness upon sit to stand transrfer prior to SPT and needed v/c for visual fixation technique. Dizziness subsided < 10 seconds as patient returned to supine in bed with mild fatigue. Patient recorded SpO2 97%, HR 97 bpm following sit to stand transfers and remained WFL's throughout entire treatment session. Patient remained in bed with call light, tray table, telephone and bed alarm for safety. Will continue per POC as tolerated, total treatment time 17 minutes. Jamaal Monahan, PATIENT CARE ASSOCIATE
[2019-12-06 08:00] VITALS: BP 133/56
--- NOTE | 2019-12-06 08:01 | NUR ---
OT NOTE Pt laying supine in bed with head elevated agreeable to 23 minute treatment session. prior to session pt was able to state NWB preautions for RLE. Identified by name and date of with complaints of 10/10 B hand and leg pain. Pt presented with wound vac on RLE. Transfer supine to EOB CGA. Sit-stand from elevated bed Dillon x2 with w/w for UB support due to NWB RLE. Pt complained of dizziness when standing, was educated on visual fixation to diminish dizziness which lasted approx 30 seconds. O2 sats read 97% at 3L via NC and a heart rate of 97bpm when standing. Pt was able to tolerate approx 2 minutes of standing tolerance without fatigue. Stand-pivot from EOB to BSC Dillon for saftey with w/w and NWB precautions. Transferring on and off BSC Dillon for safety and low rise commode. Stand pivot from commode to EOB Dillon for safety. O2 sats read 97% on 3L via NV and a heart rate of 90bpm while at rest. Throughout mobility pt demonstrated good carryover with NWB precautions of RLE. Pt was educated on "hooking" technique using LLE to lift RLE into bed with good carry over. Pt was left in bed with alarm active and call light in reach. Continue d/c recommended SNF. KATHY Hodges/TASHIA Evans/[place]
--- NOTE | 2019-12-06 08:30 | NUR ---
CM in to see patient. Discussed the possibility of her discharge today to [facility], awaiting insurance precert. She doesn't want to go to [facility] she wants to stay here in the hospital because it is another place and another change. Discussed her continued care at [facility] with 24 hour nurses and her IV antibiotics and wound vac. She verbalized an understanding. Informed patient CM will let her know as soon as CM hears that she is approved to go.
--- NOTE | 2019-12-06 08:49 | NUR ---
PT GIVEN PERCOCET 10-325 AT THIS TIME FOR C/O PAIN TO RIGHT LOWER EXTREMITY. PT RATES PAIN /. WILL MONITOR FOR EFFECTIVENESS. CALL LIGHT IN REACH.
--- NOTE | 2019-12-06 09:25 | NUR ---
Faxed updated PT/OT notes to [facility]. Waiting on auth
--- NOTE | 2019-12-06 09:32 | NUR ---
PODIATRY NOTIFIED OF PT D/C FOR TODAY. BRAILLE OPERATOR ASKED ABOUT WHETHER THEY WILL REMOVE PT WOUND VAC FOR D/C OR IF NURSING TO REMOVE WOUND VAC. BRAILLE OPERATOR STATES THAT THEY CALL ANOTHER PHYSICIAN AND GET BACK TO THIS NURSE REGARDING THE MATTER.
--- NOTE | 2019-12-06 09:49 | NUR ---
PERCOCET EFFECTIVE PER PT.
--- NOTE | 2019-12-06 10:12 | NUR ---
PT GIVEN FLEXIRIL AT THIS TIME FOR C/O MUSCLE SPASMS. WILL MONITOR FOR EFFECTIVENESS. CALL LIGHT IN REACH.
--- NOTE | 2019-12-06 10:23 | NUR ---
FLIGHT ENGINEER INSTRUCTOR STATES THAT IF [facility] HAS [facility] UN[facility] WOUND VAC, PT CAN BE D/C'D TO FACILTY WITH DRESSING IN TACT. IF FACILITY HAS DIFFERENT WOUND VAC. DRESSING IS TO BE REMOVED, WET TO DRY DRESSING APPLIED AND PT IS TO FOLLOW UP ON TUESDAY IN CLINIC WITH WOUND VAC APPLIANCE THAT [facility] APPLIES. WILL CALL [facility] AND ASK ABOUT WOUND VAC.
[2019-12-06] MEDS ORDERED: RIFADIN300 MG PO (10:54)
[2019-12-06] MEDS ORDERED: VANCO 1.51.5 GM/250 IV (10:54)
--- NOTE | 2019-12-06 10:54 | NUR ---
Received call from Dr. Boateng. Patient prescription times have been extended as patient has acute osteomyelitis. She states prescriptions have been placed on patient's chart. Notified planner internship.
--- NOTE | 2019-12-06 11:12 | NUR ---
[place] EFFECTIVE PER PT.
[2019-12-06 12:00] VITALS: BP 100/66
--- NOTE | 2019-12-06 12:16 | NUR ---
New scrips faxed to [place].
--- NOTE | 2019-12-06 14:45 | NUR ---
PT RETURNS FROM [facility] AT THIS TIME.
--- NOTE | 2019-12-06 14:47 | NUR ---
Patient has received auth for [facility] and can go when medically stable
--- NOTE | 2019-12-06 14:59 | NUR ---
Discussed her discharge time frame to [facility] is about 4pm. She verbalized an understanding.
--- NOTE | 2019-12-06 15:11 | NUR ---
Patient is discharged to [facility] via [facility] at 4:00PM. NH, nursing/steward/stewardess second class and patients ricardo Neely all notified.
--- NOTE | 2019-12-06 16:04 | NUR ---
UNABLE TO OBTAIN D/C WOUND CARE PHOTOS DUE TO DRESSING BEING IN TACT AND PLACED BY PODIATRY. ORDERS RECEIVED TO NOT REMOVE WET TO DRY DRESSING PLACED BY PODIATRY FOR PT TO BE TRANSFERRED TO SNF.
--- NOTE | 2019-12-06 16:05 | NUR ---
Discharge instructions reviewed with patient/family. Patient receptive and verbalizes understanding. Follow-up care arranged. Written instructions given to patient/family. ASCENCION BARRAZA
--- NOTE | 2019-12-07 07:44 | NUR ---
PHYSICAL THERAPY CO-SIGN I approve of the Physical Therapy notes written above. Trice Villa PT
--- NOTE | 2019-12-07 07:44 | NUR ---
OCCUPATIONAL THERAPY CO-SIGN I approve of the Occupational Therapy notes written above. BRAULIO VINES, OTR/L
[2019-12-10 14:11] LABS: ACID FAST SPEC PROCESSING Tissue Grinding (.)
== END 2019-12-06 16:05 | disposition other institution (70) | DRG 710 ==
LOC: ED 22:28 → EDHOLD 11-29 03:46 → 5E 11-29 04:29 → 4E 12-01 15:53 → 5E 12-01 15:53 → ICCU 12-01 15:53 → 4E 12-04 14:22
PROVIDERS: Emergency Medicine; Internal Medicine; Internal Medicine Critical Care Medicine; Podiatrist; ADMIT Internal Medicine; ATTEND Internal Medicine
PROC: 0QBG0ZZ Excision of Right Tibia, Open Approach (ICD-10-PCS; principal; 2019-12-01)
PROC: 0QPL04Z Removal of Internal Fixation Device from Right Tarsal, Open Approach (ICD-10-PCS; 2019-12-01)
PROC: 0QBL0ZZ Excision of Right Tarsal, Open Approach (ICD-10-PCS; 2019-12-01)
DX: A41.02 Sepsis due to Methicillin resistant Staphylococcus aureus (principal); L03.115 Cellulitis of right lower limb; N17.9 Acute kidney failure, unspecified; E87.1 Hypo-osmolality and hyponatremia; G25.81 Restless legs syndrome; F32.9 Major depressive disorder, single episode, unspecified; E03.9 Hypothyroidism, unspecified; E55.9 Vitamin D deficiency, unspecified; J45.909 Unspecified asthma, uncomplicated; E11.42 Type 2 diabetes mellitus with diabetic polyneuropathy; M54.30 Sciatica, unspecified side; J96.02 Acute respiratory failure with hypercapnia; R65.20 Severe sepsis without septic shock; J96.01 Acute respiratory failure with hypoxia; I10 Essential (primary) hypertension; E78.2 Mixed hyperlipidemia; F41.1 Generalized anxiety disorder; K21.9 Gastro-esophageal reflux disease without esophagitis; E66.01 Morbid (severe) obesity due to excess calories; E11.65 Type 2 diabetes mellitus with hyperglycemia; E11.69 Type 2 diabetes mellitus with other specified complication; M86.8X7 Other osteomyelitis, ankle and foot; G89.4 Chronic pain syndrome; R62.7 Adult failure to thrive; G47.33 Obstructive sleep apnea (adult) (pediatric); E87.6 Hypokalemia; M00.9 Pyogenic arthritis, unspecified; E43 Unspecified severe protein-calorie malnutrition; Z98.51 Tubal ligation status; Z98.891 History of uterine scar from previous surgery; Z83.3 Family history of diabetes mellitus; Z79.899 Other long term (current) drug therapy

== ENCOUNTER → 2019-12-31 | Day surgery (SDC) | payer OTHER ==
[~2019-12-31] VITALS: Wt 91.6 kg
[~2019-12-31] MED LIST changes: +LIPITOR20 MG PO; +PERCOCET 10-321 EACH PO; +RIFADIN300 MG PO; +SALINE NASAL SP88 ML INH; +TRAZODONE50 MG PO; +VANCO 1.51.5 GM/250 IV; +VITAMIN D310 MC1 PO
[2019-12-31 07:19] VITALS: BP 150/62
[2019-12-31 08:29] VITALS: BP 98/56
[2019-12-31 08:37] VITALS: BP 91/60
[2019-12-31 08:52] VITALS: BP 92/64
[2020-01-01 10:07] LABS: ACID FAST SPEC PROCESSING Tissue Grinding (.)
[2020-01-01 10:07] LABS: ACID FAST SPEC PROCESSING Tissue Grinding (.)
== END | disposition home or self-care (01) ==
LOC: SDC 12-28 15:30
PROVIDERS: ATTEND Podiatrist
DX: S91.001A Unspecified open wound, right ankle, initial encounter (principal); L97.312 Non-pressure chronic ulcer of right ankle with fat layer exposed; F41.9 Anxiety disorder, unspecified; F32.9 Major depressive disorder, single episode, unspecified; J45.909 Unspecified asthma, uncomplicated; Z87.891 Personal history of nicotine dependence; Z79.899 Other long term (current) drug therapy; X58.XXXA Exposure to other specified factors, initial encounter; Y93.89 Activity, other specified; Y92.89 Other specified places as the place of occurrence of the external cause; Y99.8 Other external cause status

== ENCOUNTER → 2020-03-05 | Outpatient (CLI) | payer OTHER | LOC: COVID19 14:58 | PROVIDERS: ATTEND Internal Medicine | DX: Z20.828 Contact with and (suspected) exposure to other viral communicable diseases (principal) ==

== ENCOUNTER → 2020-05-31 | Outpatient (CLI) | payer OTHER ==
[~2020-05-31] MED LIST changes: +CEFEPIME2 GM/100 M IV; +FENOFIBRATE MI134 MG PO; +LIPITOR40 MG PO; -SALINE NASAL SP88 ML INH; +SALINE NASAL SP88 ML NAS; +VANCOMYCIN1.75 GM/17 IV; +VITAMIN D350 MCG PO
[2020-05-31 11:15] LABS: BASO # 0.1 10*3/uL (0.0-0.1); BASO % 0.9 % (0.0-1.0); EOS # 0.3 10*3/uL (0.0-0.4); EOS % 4.6 % (1.0-4.0); LYMPH # 2.5 10*3/uL (1.3-4.4); LYMPH % 46.1 % (27.0-41.0); MEAN CELL VOLUME 87.5 fl (81.0-99.0); MEAN CORPUSCULAR HGB 26.8 pg (27.0-31.0); MEAN CORPUSCULAR HGB CONC 30.7 g/dl (33.0-37.0); MEAN PLATELET VOLUME 10.4 fl (9.6-12.3); MONO # 0.4 10*3/uL (0.1-1.0); NEUT # 2.2 10*3/uL (2.3-7.9); PLATELET COUNT AUTOMATED 258 10*3/uL (130-400); RED BLOOD COUNT 5.14 10*6/uL (4.10-5.10); RED CELL DISTRI WIDTH 13.3 % (0-14.5); WHITE BLOOD COUNT 5.5 10*3/uL (4.8-10.8)
[2020-05-31 11:25] LABS: ACT PARTIAL THROMBO TIME 25.4 SECONDS (20.0-32.1); INTERNATIONAL NORM RATIO 0.9 (2.0-3.5)
[2020-05-31 11:46] LABS: ALBUMIN 3.1 gm/dl (3.1-4.5); BUN 19 mg/dl (7-24); CHLORIDE 102 mmol/L (98-107); CHOLESTEROL 328 mg/dL (<200); CREATININE 0.78 mg/dL (0.55-1.02); HDL CHOLESTEROL 38 mg/dl (40-60); SGOT/AST 20 IU/L (3-35); SGPT/ALT 21 U/L (12-78); SODIUM 138 mmol/L (136-145)
[2020-05-31 11:55] LABS: ALKALINE PHOSPHATASE 123 U/L (45-117); FREE T4 1.01 ng/dl (0.76-1.46); TOTAL PROTEIN 7.7 gm/dL (6.4-8.2); TRIGLYCERIDES 1472 mg/dl (<150)
[2020-05-31 11:56] LABS: POTASSIUM 4.2 mmol/L (3.5-5.1)
== END | disposition home or self-care (01) ==
LOC: LAB 10:40
PROVIDERS: ATTEND Internal Medicine
DX: I10 Essential (primary) hypertension (principal); E11.9 Type 2 diabetes mellitus without complications; D52.9 Folate deficiency anemia, unspecified; D51.9 Vitamin B12 deficiency anemia, unspecified; R53.81 Other malaise; E55.9 Vitamin D deficiency, unspecified; E78.5 Hyperlipidemia, unspecified; E11.649 Type 2 diabetes mellitus with hypoglycemia without coma; R79.82 Elevated C-reactive protein (CRP); M47.816 Spondylosis without myelopathy or radiculopathy, lumbar region

== ENCOUNTER → 2020-06-06 | Outpatient (CLI) | payer OTHER | END | disposition home or self-care (01) | LOC: COVID19 12:49 | PROVIDERS: ATTEND Chiropractor Orthopedic | DX: Z01.818 Encounter for other preprocedural examination (principal); Z20.822 Contact with and (suspected) exposure to COVID-19 ==

== ENCOUNTER 2020-06-11 01:31 | Inpatient (IN) | payer OTHER ==
[~2020-06-11] VITALS: Ht 170.2 cm; Wt 95.5 kg
[2020-06-11] VITALS (9 sets, daily range): BP systolic 100–155; BP diastolic 42–70
[~2020-06-11 01:31] MED LIST changes: -CEFEPIME2 GM/100 M IV; -FENOFIBRATE MI134 MG PO; -LIPITOR40 MG PO; -VANCOMYCIN1.75 GM/17 IV; -VITAMIN D350 MCG PO
[2020-06-11] MEDS ORDERED: LIPITOR40 MG PO (12:12)
[2020-06-11] MEDS ORDERED: VITAMIN D350 MCG PO (12:13)
[2020-06-11] MEDS ORDERED: VALIUM10 MG PO (12:14)
[2020-06-11] MEDS ORDERED: FENOFIBRATE MI134 MG PO (12:15)
[2020-06-12 06:21] LABS: BASO % 0.5 % (0.0-1.0); EOS # 0.2 10*3/uL (0.0-0.4); EOS % 3.7 % (1.0-4.0); HEMATOCRIT 34.2 % (37.0-47.0); LYMPH # 1.6 10*3/uL (1.3-4.4); LYMPH % 26.2 % (27.0-41.0); MEAN CELL VOLUME 87.2 fl (81.0-99.0); MEAN PLATELET VOLUME 10.5 fl (9.6-12.3); MONO # 0.8 10*3/uL (0.1-1.0); NEUT # 3.4 10*3/uL (2.3-7.9); NEUT % 56.1 % (47.0-73.0); PLATELET COUNT AUTOMATED 230 10*3/uL (130-400); RED BLOOD COUNT 3.92 10*6/uL (4.10-5.10); RED CELL DISTRI WIDTH 13.3 % (0-14.5); WHITE BLOOD COUNT 6.1 10*3/uL (4.8-10.8)
[2020-06-12 06:28] LABS: BUN 5 mg/dl (7-24); CREATININE 0.42 mg/dL (0.55-1.02)
[2020-06-12 08:00] VITALS: BP 121/63
[2020-06-12 12:06] LABS: ACID FAST SPEC PROCESSING Tissue Grinding (.)
[2020-06-12 12:06] LABS: ACID FAST SPEC PROCESSING Tissue Grinding (.)
[2020-06-12 12:06] LABS: ACID FAST SPEC PROCESSING Tissue Grinding (.)
[2020-06-12 12:06] LABS: ACID FAST SPEC PROCESSING Tissue Grinding (.)
[2020-06-12 12:06] LABS: ACID FAST SPEC PROCESSING Tissue Grinding (.)
[2020-06-12 12:06] LABS: ACID FAST SPEC PROCESSING Tissue Grinding (.)
[2020-06-12 16:00] VITALS: BP 106/72
[2020-06-13] VITALS: BP 121/58
[2020-06-13 08:00] VITALS: BP 124/68
[2020-06-13 09:47] LABS: BASO % 0.8 % (0.0-1.0); EOS # 0.3 10*3/uL (0.0-0.4); EOS % 5.5 % (1.0-4.0); HEMATOCRIT 32.2 % (37.0-47.0); LYMPH # 1.4 10*3/uL (1.3-4.4); LYMPH % 28.9 % (27.0-41.0); MEAN CELL VOLUME 87.3 fl (81.0-99.0); MEAN CORPUSCULAR HGB 27.1 pg (27.0-31.0); MEAN CORPUSCULAR HGB CONC 31.1 g/dl (33.0-37.0); MEAN PLATELET VOLUME 10.2 fl (9.6-12.3); MONO # 0.5 10*3/uL (0.1-1.0); NEUT # 2.6 10*3/uL (2.3-7.9); PLATELET COUNT AUTOMATED 226 10*3/uL (130-400); RED BLOOD COUNT 3.69 10*6/uL (4.10-5.10); RED CELL DISTRI WIDTH 13.2 % (0-14.5); WHITE BLOOD COUNT 4.9 10*3/uL (4.8-10.8)
[2020-06-13 16:00] VITALS: BP 136/50
[2020-06-13 20:00] VITALS: BP 157/73
[2020-06-14] VITALS: BP 132/73
[2020-06-14 05:58] LABS: BASO # 0.1 10*3/uL (0.0-0.1); EOS # 0.3 10*3/uL (0.0-0.4); EOS % 6.1 % (1.0-4.0); HEMATOCRIT 30.6 % (37.0-47.0); LYMPH # 1.7 10*3/uL (1.3-4.4); LYMPH % 31.5 % (27.0-41.0); MEAN CELL VOLUME 87.7 fl (81.0-99.0); MEAN CORPUSCULAR HGB 26.9 pg (27.0-31.0); MEAN CORPUSCULAR HGB CONC 30.7 g/dl (33.0-37.0); MEAN PLATELET VOLUME 10.3 fl (9.6-12.3); MONO # 0.5 10*3/uL (0.1-1.0); NEUT # 2.7 10*3/uL (2.3-7.9); NEUT % 51.3 % (47.0-73.0); PLATELET COUNT AUTOMATED 253 10*3/uL (130-400); RED BLOOD COUNT 3.49 10*6/uL (4.10-5.10); RED CELL DISTRI WIDTH 13.2 % (0-14.5); WHITE BLOOD COUNT 5.2 10*3/uL (4.8-10.8)
[2020-06-14 08:00] VITALS: BP 123/55
[2020-06-14 16:00] VITALS: BP 134/65
[2020-06-14 20:00] VITALS: BP 127/58
[2020-06-15] VITALS: BP 123/69
[2020-06-15 08:00] VITALS: BP 153/57
[2020-06-15 09:55] LABS: BUN 4 mg/dl (7-24); CREATININE 0.38 mg/dL (0.55-1.02)
[2020-06-15 16:01] VITALS: BP 155/82
[2020-06-15 21:20] VITALS: BP 120/72
[2020-06-16] VITALS: BP 133/74
[2020-06-16 08:13] VITALS: BP 128/52
[2020-06-16 11:39] VITALS: BP 131/56
[2020-06-16 16:00] VITALS: BP 128/65
[2020-06-16 20:00] VITALS: BP 109/48
[2020-06-17] VITALS: BP 141/73
[2020-06-17 06:19] LABS: BASO # 0.1 10*3/uL (0.0-0.1); BASO % 0.9 % (0.0-1.0); EOS # 0.2 10*3/uL (0.0-0.4); EOS % 3.6 % (1.0-4.0); HEMATOCRIT 33.6 % (37.0-47.0); LYMPH # 1.8 10*3/uL (1.3-4.4); LYMPH % 32.1 % (27.0-41.0); MEAN CELL VOLUME 88.4 fl (81.0-99.0); MEAN CORPUSCULAR HGB 26.8 pg (27.0-31.0); MEAN CORPUSCULAR HGB CONC 30.4 g/dl (33.0-37.0); MEAN PLATELET VOLUME 9.9 fl (9.6-12.3); MONO # 0.6 10*3/uL (0.1-1.0); MONO % 10.4 % (3.0-9.0); NEUT # 2.8 10*3/uL (2.3-7.9); NEUT % 51.2 % (47.0-73.0); PLATELET COUNT AUTOMATED 270 10*3/uL (130-400); WHITE BLOOD COUNT 5.5 10*3/uL (4.8-10.8)
[2020-06-17 06:35] LABS: ALBUMIN 2.5 gm/dl (3.1-4.5); BUN 6 mg/dl (7-24); CHLORIDE 105 mmol/L (98-107); CREATININE 0.43 mg/dL (0.55-1.02); POTASSIUM 3.6 mmol/L (3.5-5.1); SGOT/AST 11 IU/L (3-35); SGPT/ALT 11 U/L (12-78); SODIUM 144 mmol/L (136-145); TOTAL PROTEIN 7.4 gm/dL (6.4-8.2)
[2020-06-17 06:36] LABS: ALKALINE PHOSPHATASE 93 U/L (45-117)
[2020-06-17 08:00] VITALS: BP 122/68
[2020-06-17 16:00] VITALS: BP 132/52
[2020-06-18] VITALS: BP 121/66
[2020-06-18 08:00] VITALS: BP 133/72
[2020-06-18] MEDS ORDERED: PERCOCET 10-321 EACH PO (10:21)
[2020-06-18] MEDS ORDERED: VALIUM10 MG PO (10:21)
[2020-06-18] MEDS ORDERED: LYRICA200 M1 PO (10:21)
[2020-06-18 12:00] VITALS: BP 142/66
[2020-06-18] MEDS ORDERED: CEFEPIME2 GM/100 M IV (12:50)
[2020-06-18] MEDS ORDERED: VANCOMYCIN1.75 GM/17 IV (12:50)
[2020-06-18 16:00] VITALS: BP 109/55; BP 147/69
== END 2020-06-18 19:30 | DRG 313 ==
LOC: SDC 01:31 → 5E 11:46
PROVIDERS: Family Medicine; Podiatrist; ADMIT Internal Medicine; ATTEND Internal Medicine
PROC: 0QBG0ZZ Excision of Right Tibia, Open Approach (ICD-10-PCS; principal; 2020-06-11)
PROC: 0QPL04Z Removal of Internal Fixation Device from Right Tarsal, Open Approach (ICD-10-PCS; 2020-06-11)
PROC: 0QPG04Z Removal of Internal Fixation Device from Right Tibia, Open Approach (ICD-10-PCS; 2020-06-11)
PROC: 0QBL0ZX Excision of Right Tarsal, Open Approach, Diagnostic (ICD-10-PCS; 2020-06-11)
PROC: 0QBG0ZX Excision of Right Tibia, Open Approach, Diagnostic (ICD-10-PCS; 2020-06-11)
PROC: 0QBL0ZZ Excision of Right Tarsal, Open Approach (ICD-10-PCS; 2020-06-11)
PROC: 3E0T3BZ Introduction of Anesthetic Agent into Peripheral Nerves and Plexi, Percutaneous Approach (ICD-10-PCS; 2020-06-11)
PROC: 2W3RX1Z Immobilization of Left Lower Leg using Splint (ICD-10-PCS; 2020-06-11)
PROC: 02HV33Z Insertion of Infusion Device into Superior Vena Cava, Percutaneous Approach (ICD-10-PCS; 2020-06-13)
PROC: B548ZZA Ultrasonography of Superior Vena Cava, Guidance (ICD-10-PCS; 2020-06-13)
DX: T84.622A Infection and inflammatory reaction due to internal fixation device of right tibia, initial encounter (principal); T84.84XA Pain due to internal orthopedic prosthetic devices, implants and grafts, initial encounter; L03.115 Cellulitis of right lower limb; E87.2 Acidosis; E87.1 Hypo-osmolality and hyponatremia; R62.7 Adult failure to thrive; Z68.33 Body mass index [BMI] 33.0-33.9, adult; E11.42 Type 2 diabetes mellitus with diabetic polyneuropathy; K21.9 Gastro-esophageal reflux disease without esophagitis; E03.9 Hypothyroidism, unspecified; B95.62 Methicillin resistant Staphylococcus aureus infection as the cause of diseases classified elsewhere; J45.909 Unspecified asthma, uncomplicated; E11.69 Type 2 diabetes mellitus with other specified complication; M86.8X7 Other osteomyelitis, ankle and foot; F41.1 Generalized anxiety disorder; F33.1 Major depressive disorder, recurrent, moderate; N17.9 Acute kidney failure, unspecified; E11.65 Type 2 diabetes mellitus with hyperglycemia; I10 Essential (primary) hypertension; D63.8 Anemia in other chronic diseases classified elsewhere; E11.43 Type 2 diabetes mellitus with diabetic autonomic (poly)neuropathy; K31.84 Gastroparesis; G89.29 Other chronic pain; G25.81 Restless legs syndrome; Y79.3 Surgical instruments, materials and orthopedic devices (including sutures) associated with adverse incidents; Y92.89 Other specified places as the place of occurrence of the external cause; Z59.0 Homelessness; Z83.3 Family history of diabetes mellitus; Z98.51 Tubal ligation status; Z79.899 Other long term (current) drug therapy; Z20.822 Contact with and (suspected) exposure to COVID-19; E44.0 Moderate protein-calorie malnutrition

== ENCOUNTER 2020-08-06 01:51 | Inpatient (IN) | payer OTHER ==
[~2020-08-06] VITALS: Ht 160 cm; Wt 91.8 kg
[2020-08-06] VITALS (9 sets, daily range): BP systolic 100–151; BP diastolic 53–79
[~2020-08-06 01:51] MED LIST changes: +CEFEPIME2 GM/100 M IV; +FENOFIBRATE MI134 MG PO; +LIPITOR40 MG PO; +VANCOMYCIN1.75 GM/17 IV; +VITAMIN D350 MCG PO
[2020-08-06 16:41] LABS: BASO # 0.1 10*3/uL (0.0-0.1); BASO % 0.4 % (0.0-1.0); HEMATOCRIT 37.9 % (37.0-47.0); LYMPH # 1.5 10*3/uL (1.3-4.4); LYMPH % 8.9 % (27.0-41.0); MEAN CELL VOLUME 86.5 fl (81.0-99.0); MEAN CORPUSCULAR HGB 28.5 pg (27.0-31.0); MONO # 0.1 10*3/uL (0.1-1.0); MONO % 0.7 % (3.0-9.0); NEUT # 14.8 10*3/uL (2.3-7.9); NEUT % 89.2 % (47.0-73.0); PLATELET COUNT AUTOMATED 258 10*3/uL (130-400); RED BLOOD COUNT 4.38 10*6/uL (4.10-5.10); RED CELL DISTRI WIDTH 12.9 % (0-14.5); WHITE BLOOD COUNT 16.6 10*3/uL (4.8-10.8)
[2020-08-07] VITALS: BP 122/60
[2020-08-07 08:00] VITALS: BP 118/54
[2020-08-07 11:08] LABS: CREATININE 1.21 mg/dL (0.55-1.02); POTASSIUM 4.5 mmol/L (3.5-5.1)
[2020-08-07 12:00] VITALS: BP 121/80
[2020-08-07 16:00] VITALS: BP 106/43
[2020-08-07 20:00] VITALS: BP 119/57
[2020-08-08] VITALS: BP 102/53
[2020-08-08 12:00] VITALS: BP 130/57
[2020-08-08 15:07] LABS: ACID FAST SPEC PROCESSING Tissue Grinding (.)
[2020-08-08 16:00] VITALS: BP 100/39
[2020-08-08 20:00] VITALS: BP 120/54
[2020-08-09] VITALS: BP 107/61
[2020-08-09 08:00] VITALS: BP 116/53
[2020-08-09 12:00] VITALS: BP 118/75
== END 2020-08-09 13:16 | DRG 313 ==
LOC: SDC 01:51 → 5E 16:36
PROVIDERS: Podiatrist; Student in an Organized Health Care Education/Training Program; ADMIT Internal Medicine; ATTEND Internal Medicine
PROC: 0QSG06Z Reposition Right Tibia with Intramedullary Internal Fixation Device, Open Approach (ICD-10-PCS; principal; 2020-08-06)
PROC: 0L8S0ZZ Division of Right Ankle Tendon, Open Approach (ICD-10-PCS; 2020-08-06)
PROC: 0SGH07Z Fusion of Right Tarsal Joint with Autologous Tissue Substitute, Open Approach (ICD-10-PCS; 2020-08-06)
PROC: 0QBJ0ZZ Excision of Right Fibula, Open Approach (ICD-10-PCS; 2020-08-06)
PROC: 0SGF07Z Fusion of Right Ankle Joint with Autologous Tissue Substitute, Open Approach (ICD-10-PCS; 2020-08-06)
PROC: 0QBG0ZZ Excision of Right Tibia, Open Approach (ICD-10-PCS; 2020-08-06)
PROC: 0QBJ0ZX Excision of Right Fibula, Open Approach, Diagnostic (ICD-10-PCS; 2020-08-06)
DX: E11.69 Type 2 diabetes mellitus with other specified complication (principal); L03.115 Cellulitis of right lower limb; E87.1 Hypo-osmolality and hyponatremia; E87.2 Acidosis; N17.9 Acute kidney failure, unspecified; Z79.01 Long term (current) use of anticoagulants; Z20.822 Contact with and (suspected) exposure to COVID-19; M86.8X7 Other osteomyelitis, ankle and foot; B95.62 Methicillin resistant Staphylococcus aureus infection as the cause of diseases classified elsewhere; K21.00 Gastro-esophageal reflux disease with esophagitis, without bleeding; E11.42 Type 2 diabetes mellitus with diabetic polyneuropathy; E11.65 Type 2 diabetes mellitus with hyperglycemia; F41.1 Generalized anxiety disorder; R62.7 Adult failure to thrive; I10 Essential (primary) hypertension; F33.1 Major depressive disorder, recurrent, moderate; E03.9 Hypothyroidism, unspecified; G89.29 Other chronic pain; M54.5 Low back pain; M19.071 Primary osteoarthritis, right ankle and foot; Z98.891 History of uterine scar from previous surgery; Z98.51 Tubal ligation status

== ENCOUNTER 2021-04-26 08:33 | Inpatient (IN) | payer MEDICAID ==
[~2021-04-26] VITALS: Ht 170 cm; Wt 87.8 kg
[2021-04-26] VITALS (7 sets, daily range): BP systolic 121–167; BP diastolic 50–79
[2021-04-26 09:20] LABS: BASO # 0.1 10*3/uL (0.0-0.1); BASO % 0.4 % (0.0-1.0); EOS % 0.2 % (1.0-4.0); HEMATOCRIT 52.2 % (37.0-47.0); LYMPH # 2.2 10*3/uL (1.3-4.4); LYMPH % 10.5 % (27.0-41.0); MEAN CELL VOLUME 83.4 fl (81.0-99.0); MEAN CORPUSCULAR HGB 28.8 pg (27.0-31.0); MEAN CORPUSCULAR HGB CONC 34.5 g/dl (33.0-37.0); MONO # 0.9 10*3/uL (0.1-1.0); MONO % 4.3 % (3.0-9.0); NEUT # 17.3 10*3/uL (2.3-7.9); NEUT % 84.1 % (47.0-73.0); PLATELET COUNT AUTOMATED 358 10*3/uL (130-400); RED BLOOD COUNT 6.26 10*6/uL (4.10-5.10); RED CELL DISTRI WIDTH 12.3 % (0-14.5); WHITE BLOOD COUNT 20.6 10*3/uL (4.8-10.8)
[2021-04-26 09:35] LABS: ACT PARTIAL THROMBO TIME 30.8 SECONDS (20.0-32.1)
[2021-04-26 09:39] LABS: ALBUMIN 3.8 gm/dl (3.1-4.5); CREATININE 1.39 mg/dL (0.55-1.02); POTASSIUM 3.5 mmol/L (3.5-5.1); TOTAL PROTEIN 8.5 gm/dL (6.4-8.2)
[2021-04-26 10:39] LABS: BILIRUBIN Negative (Negative); BLOOD 1+ (Negative); CLARITY Clear (Clear); COLOR Yellow (Yellow); GLUCOSE 3+ (Negative); KETONE 4+ (Negative); LEUKO ESTERASE Negative (Negative); NITRITE Negative (Negative); SPECIFIC GRAVITY 1.025 (1.001-1.030); UROBILINOGEN 0.2 E.U./dl (0.0-1.0)
[2021-04-26 11:41] LABS: EPITHELIAL CELLS 0-2
[2021-04-26 11:43] LABS: BACTERIA 1+
[2021-04-26 11:44] LABS: YEAST TRACE
[2021-04-26 14:19] LABS: BUN 37 mg/dl (7-24); CREATININE 1.13 mg/dL (0.55-1.02); POTASSIUM 3.2 mmol/L (3.5-5.1); SODIUM 134 mmol/L (136-145)
[2021-04-26 14:20] LABS: CHLORIDE 104 mmol/L (98-107)
[2021-04-26 20:41] LABS: ALBUMIN 3.2 gm/dl (3.1-4.5); ALKALINE PHOSPHATASE 97 U/L (45-117); CHLORIDE 111 mmol/L (98-107); CREATININE 1.06 mg/dL (0.55-1.02); POTASSIUM 4.6 mmol/L (3.5-5.1); SGOT/AST 10 IU/L (3-35); SGPT/ALT 18 U/L (12-78); SODIUM 135 mmol/L (136-145); TOTAL PROTEIN 6.8 gm/dL (6.4-8.2)
[2021-04-26 20:43] LABS: ARTERIAL BLOOD GAS PH 7.268 (7.35-7.45); ARTERIAL BLOOD GAS PO2 80.3 (80-90)
[2021-04-26 20:44] LABS: ABG BASE EXCESS -12.4 mmol/L (-2.0-2.0)
[2021-04-26 20:45] LABS: BUN 26 mg/dl (7-24)
[2021-04-27 02:41] VITALS: BP 128/71
[2021-04-27 06:04] LABS: BUN 18 mg/dl (7-24); CHLORIDE 113 mmol/L (98-107); CREATININE 0.91 mg/dL (0.55-1.02); POTASSIUM 3.9 mmol/L (3.5-5.1); SODIUM 138 mmol/L (136-145)
[2021-04-27 07:04] LABS: BASO % 0.2 % (0.0-1.0); EOS % 0.1 % (1.0-4.0); HEMATOCRIT 42.1 % (37.0-47.0); LYMPH # 2.4 10*3/uL (1.3-4.4); LYMPH % 16.8 % (27.0-41.0); MEAN CELL VOLUME 85.4 fl (81.0-99.0); MEAN CORPUSCULAR HGB 28.6 pg (27.0-31.0); MEAN CORPUSCULAR HGB CONC 33.5 g/dl (33.0-37.0); MEAN PLATELET VOLUME 10.4 fl (9.6-12.3); MONO # 1.5 10*3/uL (0.1-1.0); MONO % 10.4 % (3.0-9.0); NEUT # 10.1 10*3/uL (2.3-7.9); NEUT % 72.1 % (47.0-73.0); RED BLOOD COUNT 4.93 10*6/uL (4.10-5.10)
[2021-04-27 07:13] LABS: PLATELET COUNT AUTOMATED 208 10*3/uL (130-400)
[2021-04-27 07:48] VITALS: BP 120/64
[2021-04-27 13:01] LABS: BUN 14 mg/dl (7-24); CHLORIDE 112 mmol/L (98-107); POTASSIUM 3.9 mmol/L (3.5-5.1); SODIUM 138 mmol/L (136-145)
[2021-04-27 16:10] VITALS: BP 96/48
[2021-04-27 19:44] VITALS: BP 112/58
[2021-04-27 23:01] VITALS: BP 117/71
[2021-04-28] VITALS (7 sets, daily range): BP systolic 104–153; BP diastolic 36–70
[2021-04-28 05:01] LABS: BUN 9 mg/dl (7-24); CHLORIDE 112 mmol/L (98-107); CREATININE 0.69 mg/dL (0.55-1.02); POTASSIUM 3.1 mmol/L (3.5-5.1); SODIUM 141 mmol/L (136-145)
[2021-04-29] VITALS: BP 116/49; BP 144/79
[2021-04-29] MEDS ORDERED: DIAZEPAM5 MG PO (03:47)
[2021-04-29] MEDS ORDERED: LANTUS SOL100 UNIT/1 SC ×2 (03:49→03:50)
[2021-04-29] MEDS ORDERED: GLIMEPIRIDE4 M1 PO (03:58)
[2021-04-29 07:01] LABS: BUN 12 mg/dl (7-24); CHLORIDE 104 mmol/L (98-107); CREATININE 0.58 mg/dL (0.55-1.02)
[2021-04-29 07:12] LABS: SODIUM 137 mmol/L (136-145)
[2021-04-29 07:31] LABS: POTASSIUM 3.3 mmol/L (3.5-5.1)
[2021-04-29 08:00] VITALS: BP 135/81
[2021-04-29] MEDS ORDERED: METOCLOPRAMIDE H5 M1 PO (09:42)
== END 2021-04-29 16:25 | disposition home health service (06) | DRG 420 ==
LOC: ED 08:33 → EDHOLD 10:20 → 4E 04-28 09:38
PROVIDERS: Emergency Medicine; Internal Medicine Critical Care Medicine; ADMIT Internal Medicine; ATTEND Internal Medicine
PROC: 0HBGXZZ Excision of Left Hand Skin, External Approach (ICD-10-PCS; principal; 2021-04-29)
DX: E11.10 Type 2 diabetes mellitus with ketoacidosis without coma (principal); E11.42 Type 2 diabetes mellitus with diabetic polyneuropathy; E11.43 Type 2 diabetes mellitus with diabetic autonomic (poly)neuropathy; K31.84 Gastroparesis; E87.6 Hypokalemia; F33.9 Major depressive disorder, recurrent, unspecified; N17.0 Acute kidney failure with tubular necrosis; E44.0 Moderate protein-calorie malnutrition; E86.0 Dehydration; F41.1 Generalized anxiety disorder; E03.9 Hypothyroidism, unspecified; G25.81 Restless legs syndrome; E11.69 Type 2 diabetes mellitus with other specified complication; M19.90 Unspecified osteoarthritis, unspecified site; M86.8X7 Other osteomyelitis, ankle and foot; R62.7 Adult failure to thrive; K21.00 Gastro-esophageal reflux disease with esophagitis, without bleeding; L98.499 Non-pressure chronic ulcer of skin of other sites with unspecified severity; I10 Essential (primary) hypertension; M47.816 Spondylosis without myelopathy or radiculopathy, lumbar region; K29.90 Gastroduodenitis, unspecified, without bleeding; Z83.3 Family history of diabetes mellitus; Z79.1 Long term (current) use of non-steroidal anti-inflammatories (NSAID); Z79.899 Other long term (current) drug therapy; Z79.4 Long term (current) use of insulin; Z68.30 Body mass index [BMI] 30.0-30.9, adult

== ENCOUNTER → 2021-06-17 | Outpatient (CLI) | payer MEDICAID ==
[~2021-06-17] MED LIST changes: +DIAZEPAM5 MG PO; +GLIMEPIRIDE4 M1 PO; +LANTUS SOL100 UNIT/1 SC; +METOCLOPRAMIDE H5 M1 PO
== END | disposition home or self-care (01) ==
LOC: US 15:30
PROVIDERS: ATTEND Podiatrist
DX: R60.0 Localized edema (principal); M79.662 Pain in left lower leg; M79.661 Pain in right lower leg

== ENCOUNTER → 2024-05-15 | Outpatient (CLI) | payer MEDICAID ==
[~2024-05-15] MED LIST changes: +AMARYL4 MG PO; +METOCLOPRAMIDE H5 M2 PO; +METRONIDAZOLE500 M1 PO; -REQUIP3 M1 PO; +VALTREX1000 MG PO; +VANCOMYCIN HC1.25 GM IV; +VIBRAMYCIN100 MG PO
== END | disposition home or self-care (01) ==
LOC: WOUNDCARE 09:21
PROVIDERS: ATTEND Nurse Practitioner Family
DX: E11.621 Type 2 diabetes mellitus with foot ulcer (principal); L97.522 Non-pressure chronic ulcer of other part of left foot with fat layer exposed; L84 Corns and callosities; E11.40 Type 2 diabetes mellitus with diabetic neuropathy, unspecified; E11.42 Type 2 diabetes mellitus with diabetic polyneuropathy; E11.43 Type 2 diabetes mellitus with diabetic autonomic (poly)neuropathy; K31.84 Gastroparesis; I10 Essential (primary) hypertension; E03.9 Hypothyroidism, unspecified; M19.90 Unspecified osteoarthritis, unspecified site; M19.071 Primary osteoarthritis, right ankle and foot; K21.9 Gastro-esophageal reflux disease without esophagitis; F41.9 Anxiety disorder, unspecified; Z87.891 Personal history of nicotine dependence; Z98.51 Tubal ligation status; Z98.890 Other specified postprocedural states; Z79.4 Long term (current) use of insulin; Z79.899 Other long term (current) drug therapy

== ENCOUNTER → 2024-05-22 | Outpatient (CLI) | payer MEDICAID | END | disposition home or self-care (01) | LOC: WOUNDCARE 01:42 | PROVIDERS: ATTEND Nurse Practitioner Family | DX: E11.621 Type 2 diabetes mellitus with foot ulcer (principal); L97.522 Non-pressure chronic ulcer of other part of left foot with fat layer exposed; L84 Corns and callosities; I10 Essential (primary) hypertension; E03.9 Hypothyroidism, unspecified; E11.42 Type 2 diabetes mellitus with diabetic polyneuropathy; E11.43 Type 2 diabetes mellitus with diabetic autonomic (poly)neuropathy; K31.84 Gastroparesis; K21.9 Gastro-esophageal reflux disease without esophagitis; G25.81 Restless legs syndrome; M19.071 Primary osteoarthritis, right ankle and foot; F41.9 Anxiety disorder, unspecified; Z98.51 Tubal ligation status; Z98.890 Other specified postprocedural states; Z87.891 Personal history of nicotine dependence; Z79.4 Long term (current) use of insulin; Z79.899 Other long term (current) drug therapy ==

== ENCOUNTER → 2024-06-01 | Outpatient (CLI) | payer MEDICAID | END | disposition home or self-care (01) | LOC: WOUNDCARE 03:05 | PROVIDERS: ATTEND Nurse Practitioner Family | DX: E11.621 Type 2 diabetes mellitus with foot ulcer (principal); L97.522 Non-pressure chronic ulcer of other part of left foot with fat layer exposed; L84 Corns and callosities; I10 Essential (primary) hypertension; E11.42 Type 2 diabetes mellitus with diabetic polyneuropathy; E11.43 Type 2 diabetes mellitus with diabetic autonomic (poly)neuropathy; K31.84 Gastroparesis; E11.69 Type 2 diabetes mellitus with other specified complication; M86.171 Other acute osteomyelitis, right ankle and foot; M19.90 Unspecified osteoarthritis, unspecified site; E03.9 Hypothyroidism, unspecified; K21.9 Gastro-esophageal reflux disease without esophagitis; G25.81 Restless legs syndrome; F41.9 Anxiety disorder, unspecified; F12.90 Cannabis use, unspecified, uncomplicated; Z98.51 Tubal ligation status; Z98.890 Other specified postprocedural states; Z87.891 Personal history of nicotine dependence; Z79.4 Long term (current) use of insulin; Z79.899 Other long term (current) drug therapy ==

== ENCOUNTER → 2024-06-12 | Outpatient (CLI) | payer MEDICAID | END | disposition home or self-care (01) | LOC: WOUNDCARE 02:20 | PROVIDERS: ATTEND Nurse Practitioner Family | DX: E11.621 Type 2 diabetes mellitus with foot ulcer (principal); L97.522 Non-pressure chronic ulcer of other part of left foot with fat layer exposed; L84 Corns and callosities; I10 Essential (primary) hypertension; E11.42 Type 2 diabetes mellitus with diabetic polyneuropathy; E11.43 Type 2 diabetes mellitus with diabetic autonomic (poly)neuropathy; K31.84 Gastroparesis; E11.69 Type 2 diabetes mellitus with other specified complication; M86.171 Other acute osteomyelitis, right ankle and foot; M19.90 Unspecified osteoarthritis, unspecified site; E03.9 Hypothyroidism, unspecified; K21.9 Gastro-esophageal reflux disease without esophagitis; G25.81 Restless legs syndrome; F41.9 Anxiety disorder, unspecified; F12.90 Cannabis use, unspecified, uncomplicated; Z98.51 Tubal ligation status; Z98.890 Other specified postprocedural states; Z87.891 Personal history of nicotine dependence; Z79.4 Long term (current) use of insulin; Z79.899 Other long term (current) drug therapy; Z86.14 Personal history of Methicillin resistant Staphylococcus aureus infection ==

== ENCOUNTER → 2024-06-19 | Outpatient (CLI) | payer MEDICAID | END | disposition home or self-care (01) | LOC: WOUNDCARE 01:59 | PROVIDERS: ATTEND Nurse Practitioner Family | DX: E11.621 Type 2 diabetes mellitus with foot ulcer (principal); L97.522 Non-pressure chronic ulcer of other part of left foot with fat layer exposed; L84 Corns and callosities; E11.42 Type 2 diabetes mellitus with diabetic polyneuropathy; I10 Essential (primary) hypertension; K21.9 Gastro-esophageal reflux disease without esophagitis; M19.071 Primary osteoarthritis, right ankle and foot; G25.81 Restless legs syndrome; F41.9 Anxiety disorder, unspecified; Z87.891 Personal history of nicotine dependence; Z98.51 Tubal ligation status; Z98.890 Other specified postprocedural states; Z79.4 Long term (current) use of insulin; Z79.899 Other long term (current) drug therapy ==

== ENCOUNTER → 2024-07-17 | Outpatient (CLI) | payer MEDICAID | END | disposition home or self-care (01) | LOC: WOUNDCARE 02:08 | PROVIDERS: ATTEND Nurse Practitioner Family | DX: E11.621 Type 2 diabetes mellitus with foot ulcer (principal); L97.522 Non-pressure chronic ulcer of other part of left foot with fat layer exposed; E11.51 Type 2 diabetes mellitus with diabetic peripheral angiopathy without gangrene; E11.43 Type 2 diabetes mellitus with diabetic autonomic (poly)neuropathy; K31.84 Gastroparesis; I10 Essential (primary) hypertension; E03.9 Hypothyroidism, unspecified; K21.9 Gastro-esophageal reflux disease without esophagitis; F41.9 Anxiety disorder, unspecified; M19.90 Unspecified osteoarthritis, unspecified site; Z98.890 Other specified postprocedural states; Z98.51 Tubal ligation status; Z79.4 Long term (current) use of insulin; Z79.899 Other long term (current) drug therapy ==

== ENCOUNTER → 2024-07-24 | Outpatient (CLI) | payer MEDICAID | END | disposition home or self-care (01) | LOC: WOUNDCARE 02:59 | PROVIDERS: ATTEND Nurse Practitioner Family | DX: E11.621 Type 2 diabetes mellitus with foot ulcer (principal); L97.522 Non-pressure chronic ulcer of other part of left foot with fat layer exposed; L84 Corns and callosities; I10 Essential (primary) hypertension; E11.69 Type 2 diabetes mellitus with other specified complication; M86.171 Other acute osteomyelitis, right ankle and foot; E11.42 Type 2 diabetes mellitus with diabetic polyneuropathy; E11.43 Type 2 diabetes mellitus with diabetic autonomic (poly)neuropathy; K31.84 Gastroparesis; M19.90 Unspecified osteoarthritis, unspecified site; E03.9 Hypothyroidism, unspecified; K21.9 Gastro-esophageal reflux disease without esophagitis; F41.9 Anxiety disorder, unspecified; Z86.14 Personal history of Methicillin resistant Staphylococcus aureus infection; Z98.51 Tubal ligation status; Z98.890 Other specified postprocedural states; Z87.891 Personal history of nicotine dependence; Z79.4 Long term (current) use of insulin; Z79.899 Other long term (current) drug therapy ==

== ENCOUNTER → 2024-07-31 | Outpatient (CLI) | payer MEDICAID | END | disposition home or self-care (01) | LOC: WOUNDCARE 02:01 | PROVIDERS: ATTEND Nurse Practitioner Family | DX: E11.621 Type 2 diabetes mellitus with foot ulcer (principal); L97.522 Non-pressure chronic ulcer of other part of left foot with fat layer exposed; L84 Corns and callosities; E11.69 Type 2 diabetes mellitus with other specified complication; M86.171 Other acute osteomyelitis, right ankle and foot; E11.42 Type 2 diabetes mellitus with diabetic polyneuropathy; E11.43 Type 2 diabetes mellitus with diabetic autonomic (poly)neuropathy; K31.84 Gastroparesis; I10 Essential (primary) hypertension; M19.90 Unspecified osteoarthritis, unspecified site; E03.9 Hypothyroidism, unspecified; K21.9 Gastro-esophageal reflux disease without esophagitis; F41.9 Anxiety disorder, unspecified; Z86.14 Personal history of Methicillin resistant Staphylococcus aureus infection; Z98.51 Tubal ligation status; Z98.890 Other specified postprocedural states; Z87.891 Personal history of nicotine dependence; Z79.4 Long term (current) use of insulin; Z79.899 Other long term (current) drug therapy ==

== ENCOUNTER → 2024-08-07 | Outpatient (CLI) | payer MEDICAID | END | disposition home or self-care (01) | LOC: WOUNDCARE 02:27 | PROVIDERS: ATTEND Nurse Practitioner Family | DX: E11.621 Type 2 diabetes mellitus with foot ulcer (principal); L97.522 Non-pressure chronic ulcer of other part of left foot with fat layer exposed; E11.42 Type 2 diabetes mellitus with diabetic polyneuropathy; E11.69 Type 2 diabetes mellitus with other specified complication; M86.171 Other acute osteomyelitis, right ankle and foot; E11.43 Type 2 diabetes mellitus with diabetic autonomic (poly)neuropathy; K31.84 Gastroparesis; I10 Essential (primary) hypertension; M19.90 Unspecified osteoarthritis, unspecified site; E03.9 Hypothyroidism, unspecified; K21.9 Gastro-esophageal reflux disease without esophagitis; F41.9 Anxiety disorder, unspecified; Z86.14 Personal history of Methicillin resistant Staphylococcus aureus infection; Z98.51 Tubal ligation status; Z98.890 Other specified postprocedural states; Z87.891 Personal history of nicotine dependence; Z79.4 Long term (current) use of insulin; Z79.899 Other long term (current) drug therapy ==

== ENCOUNTER → 2024-08-21 | Outpatient (CLI) | payer MEDICAID | LOC: WOUNDCARE 00:38 | PROVIDERS: ATTEND Nurse Practitioner Family | DX: E11.621 Type 2 diabetes mellitus with foot ulcer (principal); L97.522 Non-pressure chronic ulcer of other part of left foot with fat layer exposed; E11.42 Type 2 diabetes mellitus with diabetic polyneuropathy; E03.9 Hypothyroidism, unspecified; I10 Essential (primary) hypertension; K21.9 Gastro-esophageal reflux disease without esophagitis; M19.90 Unspecified osteoarthritis, unspecified site; F41.9 Anxiety disorder, unspecified; Z87.891 Personal history of nicotine dependence; Z98.51 Tubal ligation status; Z98.890 Other specified postprocedural states; Z79.899 Other long term (current) drug therapy; Z79.4 Long term (current) use of insulin ==